=== PATIENT | female | born 1935 | race Two or more races ===

== ENCOUNTER → 2016-12-05 | Outpatient (CLI) | payer OTHER ==
--- NOTE | 2016-12-05 18:37 | CT ---
CT thoracic spine 1629 hours. History: Back pain. Fell one year ago with persistent lower thoracic pain. Assess for herniated disk, degenerative disk disease, spinal stenosis. (M 54.6) Technique: Spiral imaging was obtained through the thoracic spine. Images were reconstructed down to 1.5 mm slice thickness and reviewed in multiple planes. Dose reduction techniques were utilized. Findings: Multiple compression fractures are identified as follows: T3 mild compression superior endplate, T9 moderate to marked compression superior endplate, T10 marked compression superior endplate with patchy sclerosis, mild retropulsion posterior superior corner, T11 moderate to marked compression with patchy sclerosis, T12 moderate to marked compression superior endplate with patchy sclerosis, mild retropulsion posteri or superior corner, L1 mild compression superior endplate with Schmorl's nodes suspected, L2 marked compression superior endplate with mild retropulsion posterior superior corner, L3 marked compression superior endplate with mild retropulsion posterior superior corner and patchy s clerosis, L4 mild compression superior central endplate. There are no significant lytic or sclerotic osseous lesions. There is incidental bone island right an terior aspect of L4 segment. The lungs are hyperexpanded. There are pulmonary nodules, consolidation, or effusion. There is no pericardial effusion. Pacemaker unit and leads are in place. The paraspinal soft tissues appear to be normal. Impression: 1. Numerous compression fractures involving the visualized thoracic and lumbar spine segments most pr ominent from T9 through T12 as well as L2 and L3 segments as detailed above. The patchy sclerosis at these levels is probably related to bony reactive changes from chronic fracture. Osseous metastatic d isease is felt to be possible but less likely. 2. Minimal retropulsion of the posterior superior corners of T9, T10, T12, L2, and L3 segments withou t significant spinal stenosis. 3. Hyperexpanded lungs suggestive of underlying COPD.
== END ==
LOC: FIMAGING 15:47
PROVIDERS: ATTEND Physical Medicine & Rehabilitation
DX: M54.6 Pain in thoracic spine (principal); S22.000D Wedge compression fracture of unspecified thoracic vertebra, subsequent encounter for fracture with routine healing; S32.000D Wedge compression fracture of unspecified lumbar vertebra, subsequent encounter for fracture with routine healing; Z95.0 Presence of cardiac pacemaker; Z85.3 Personal history of malignant neoplasm of breast

== ENCOUNTER → 2017-01-03 | Outpatient (CLI) | payer OTHER | LOC: BMCIMAGING 08:50 | PROVIDERS: ATTEND Physician Assistant | DX: Z12.31 Encounter for screening mammogram for malignant neoplasm of breast (principal); M81.0 Age-related osteoporosis without current pathological fracture | CPT/HCPCS: G0202 ==

== ENCOUNTER 2017-11-21 17:34 | Inpatient (IN) | payer OTHER ==
--- NOTE | 2017-11-21 18:01 | EDPHY ---
H & P Stated Complaint: cough x 2 weeks flu neg/swelling bilat legs/chest pressure Time Seen by Provider: 11/21/17 18:00 HPI/ROS: CHIEF COMPLAINT: Worsening dyspnea, lower extremity edema HISTORY OF PRESENT ILLNESS: The patient presents to the ED with complaints of a dry nonproductive cough for the past 2 weeks. Over the past day she has developed bilateral lower extremity edema. The patient denies orthopnea or PND. The patient denies fever. She did have a negative flu test performed earlier in the week. She has a history of congestive heart failure and currently has a pacemaker. She is not anticoagulated. She does not on a diuretic. The patient denies any complaints of abdominal pain, dysuria, headache, numbness or weakness. REVIEW OF SYSTEMS: A comprehensive 10 point review of systems is otherwise negative aside from elements mentioned in the history of present illness. Source: Patient Exam Limitations: No limitations - Personal History Current Tetanus/Diphtheria Vaccine: Yes Tetanus Vaccine Date: 2014 - Medical/Surgical History Hx Asthma: No Hx Chronic Respiratory Disease: No Hx Diabetes: No Hx Cardiac Disease: Yes Hx Renal Disease: No Hx Cirrhosis: No Hx Alcoholism: No Hx HIV/AIDS: No Hx Splenectomy or Spleen Trauma: No Other PMH: chf; beast CA, L sided lymph nodes removed; Rheumatic fever, pacer ( [employer]), htn, hypothyroid - Social History Smoking Status: Former smoker - Physical Exam Exam: General Appearance: Alert, no distress Eyes: Pupils equal and round no pallor or injection ENT, Mouth: Mucous membranes moist Respiratory: There are no retractions, lungs are clear to auscultation Cardiovascular: Tachycardic Gastrointestinal: Abdomen is soft and nontender, no masses, bowel sounds normal Neurological: A&O, normal motor function, normal sensory exam, normal cranial nerves Skin: Warm and dry, no rashes Musculoskeletal: Neck is supple nontender Extremities: Bilateral 2+ pitting edema Psychiatric: Patient is oriented X 3, there is no agitation Constitutional: Initial Vital Signs Temperature (C) 36.3 C 11/21/17 17:44 Heart Rate 104 H 11/21/17 17:44 Respiratory Rate 20 11/21/17 17:44 Blood Pressure 128/84 H 11/21/17 17:44 O2 Sat (%) 95 11/21/17 17:44 O2 Delivery Mode Room Air Allergies/Adverse Reactions: No Known Allergies Allergy (Verified 11/21/17 17:43) Home Medications: Medication Instructions Recorded Carvedilol 06/24/15 Levothyroxine 06/24/15 Losartan Potassium 06/24/15 SIMVASTATIN 06/24/15 Spironolactone 06/24/15 Medical Decision Making - Diagnostics EKG Interpretation: EKG: Complete interpretation has been separately recorded in the [facility] archive. Summary impression: Atrial paced rhythm, rate 103 ED Course/Re-evaluation: The patient presents to the ED with several weeks of worsening cough, dyspnea and lower extremity edema. The patient is not currently on a diuretic. She is currently in a paced rhythm. The patient does have a elevated proBNP, cardiomegaly and bilateral pleural effusions with pulmonary venous congestion noted on her x-ray. The patient had a indeterminately elevated troponin. The patient is in no acute distress. She received 40 mg of IV Lasix. The patient will be admitted to the hospital in the setting of her acute congestive heart failure. Consultation was made with Dr. William Dougherty from the hospitalist service. The patient was re-evaluated at 8:00 p.m.. She is comfortable with the plan for admission. Differential Diagnosis: Differential diagnosis considered includes congestive heart failure, DVT, arrhythmia, myocardial infarction - Data Points Laboratory Results: Laboratory Results 11/21/17 18:25 11/21/17 18:25 11/21/17 11/21/17 18:25 18:25 WBC 5.70 10^3/uL 10^3/uL (3.80-9.50) RBC 3.79 10^6/uL L 10^6/uL (4.18-5.33) Hgb 11.8 g/dL L g/dL (12.6-16.3) Hct 36.0 % L % (38.0-47.0) MCV 95.0 fL fL (81.5-99.8) MCH 31.1 pg pg (27.9-34.1) MCHC 32.8 g/dL g/dL (32.4-36.7) RDW 16.5 % H % (11.5-15.2) Plt Count 188 10^3/uL 10^3/uL (150-400) MPV 10.7 fL fL (8.7-11.7) Neut % (Auto) 77.1 % H % (39.3-74.2) Lymph % (Auto) 14.4 % L % (15.0-45.0) Hamilton % (Auto) 7.0 % % (4.5-13.0) Eos % (Auto) 0.4 % L % (0.6-7.6) Baso % (Auto) 0.7 % % (0.3-1.7) Nucleat RBC Rel Count 0.0 % % (0.0-0.2) Absolute Neuts (auto) 4.40 10^3/uL 10^3/uL (1.70-6.50) Absolute Lymphs (auto) 0.82 10^3/uL L 10^3/uL (1.00-3.00) Absolute Monos (auto) 0.40 10^3/uL 10^3/uL (0.30-0.80) Absolute Eos (auto) 0.02 10^3/uL L 10^3/uL (0.03-0.40) Absolute Basos (auto) 0.04 10^3/uL 10^3/uL (0.02-0.10) Absolute Nucleated RBC 0.00 10^3/uL 10^3/uL (0-0.01) Immature Gran % 0.4 % % (0.0-1.1) Immature Gran # 0.02 10^3/uL 10^3/uL (0.00-0.10) Sodium 144 mEq/L mEq/L (135-145) Potassium 3.9 mEq/L mEq/L (3.5-5.2) Chloride 109 mEq/L mEq/L (97-110) Carbon Dioxide 21 mEq/l L mEq/l (22-31) Anion Gap 14 mEq/L mEq/L (8-16) BUN 34 mg/dL H mg/dL (7-23) Creatinine 0.9 mg/dL mg/dL (0.6-1.0) Estimated GFR 60 Glucose 96 mg/dL mg/dL (70-100) Calcium 8.9 mg/dL mg/dL (8.5-10.4) Troponin I 0.074 ng/mL H ng/mL (0.000-0.034) NT-Pro-B Natriuret Pep 10494 pg/mL H pg/mL (0-450) Medications Given: Discontinued Medications Furosemide (Lasix Injection) 40 mg IVP EDNOW ONE Stop: 11/21/17 19:09 Last Admin: 11/21/17 19:22 Dose: 40 mg Departure - Departure Disposition: [facility] Inpatient Acute Clinical Impression: Acute exacerbation of congestive heart failure, Elevated troponin I level Condition: Fair Referrals: Josey Campbell FNP [Primary Care Provider] - As per Instructions
--- NOTE | 2017-11-21 18:09 | CPEKG ---
Heart Rate: 103 RR Interval: 583 P-R Interval: 128 QRSD Interval: 98 QT Interval: 384 QTC Interval: 503 P Calvin: 111 QRS Calvin: 228 T Wave Calvin: 23 EKG Severity - ABNORMAL ECG - EKG Impression: ATRIAL-SENSED VENTRICULAR-PACED RHYTHM Electronically Signed By: Bhargav Hi 21-Nov-2017 18:16:14
[2017-11-21 18:43] LABS: PLATELET COUNT 188 10^3/uL (150-400)
[2017-11-21] MEDS ORDERED: FUROSEMIDE 40 MG/4 ML VIAL IVP ONE (19:08)
[2017-11-21] MEDS ORDERED: ACETAMINOPHEN 325 MG TAB PO PRN (21:49)
[2017-11-21] MEDS ORDERED: ONDANSETRON 4 MG/2 ML VIAL IVP PRN (21:49)
[2017-11-21] MEDS ORDERED: ONDANSETRON DISINTEGRATING 4 MG TAB PO PRN (21:49)
--- NOTE | 2017-11-21 22:25 | GHP ---
[f rep st] HISTORY AND PHYSICAL DATE OF ADMISSION: 11/21/2017 CHIEF COMPLAINT: Cough. HISTORY OF PRESENT ILLNESS: This is an 82-year-old female with a history of congestive heart failure who presents with cough. She does describes it as dry in her throat. She had a negative flu test a s an outpatient. She also noticed some swelling in her feet. She has had some mild shortness of wade ath. She describes some tightness in her chest, which is not exertional. It seems to come and go an d has been there over the last week. PAST MEDICAL/SURGICAL HISTORY: 1. Congestive heart failure. 2. Rheumatic heart disease followed by Dr. Mckeon. 3. Pacemaker. MEDICATIONS: Please see medication reconciliation. ALLERGIES: No known drug allergies. SOCIAL HISTORY: She lives with her son. She moved from [place] a few years ago. Her di ed last December of prostate cancer. FAMILY HISTORY: Reviewed and noncontributory. REVIEW OF SYSTEMS: A 10-point review of systems is conducted and is negative except per HPI. PHYSICAL EXAMINATION: VITAL SIGNS: Blood pressure 128/88, heart rate 97, respiration rate 16, satur ating 94% on room air. Temperature is 36. GENERAL: The patient is a very pleasant female, who is resting comfortably in no acute distress. HE ENT: Shows her to be normocephalic and atraumatic. CARDIOVASCULAR: Exam shows a regular rate and rh ythm. There is a faint systolic murmur. PULMONARY: Shows her to have diminished breath sounds at b ilateral bases. ABDOMEN: Exam is soft. She is mildly tender to palpation in the epigastrium. SKIN: Exam shows no rash. : Exam shows no Hylton NEUROLOGIC: Examination shows her to be alert and oriented x3. She is moving all extremities. PSYC HIATRIC: Examination shows normal mood and affect. LABORATORY DATA: Creatinine is 0.9. Troponin is 0.74. BNP is 18,500. Hemoglobin is low for 8. DATA: 1. I discussed with Dr. Hi and will admit to PCU. 2. I personally viewed and interpreted her chest x-ray. This shows pacemaker in place, cardiomegaly , bilateral pleural effusions, and pulmonary edema. 3. EKG shows an A-sensed V-paced rhythm with the left bundle morphology. IMPRESSION AND PLAN: 1. Suspected acute systolic congestive heart failure: Unclear precipitant. Unknown baseline ejecti on fraction. We will attempt to obtain an echocardiogram from Dr. Mckeon's office. We will order an e chocardiogram here for comparison. We will continue carvedilol and losartan. We will continue aggre ssive diuresis following her electrolytes, kidney function, daily weights, and I's and O's. 2. Chest pressure: May be due to congestive heart failure. Certainly it also could be angina. It is certainly possible her congestive heart failure is worsened by ischemia. Trend her troponins. Re commend cardiology consultation tomorrow. 3. Code status is full. 4. Venous thromboembolism risk is high. I will give her Lovenox. /[id number]/MODL
[2017-11-22 06:00] LABS: PLATELET COUNT 169 10^3/uL (150-400)
[2017-11-22] MEDS: FUROSEMIDE 40 MG/4 ML VIAL IVP SCH ×2 (08:58→14:51)
[2017-11-22] MEDS: LOSARTAN POTASSIUM 25 MG TAB PO SCH (08:58)
[2017-11-22] MEDS: ENOXAPARIN 40 MG/0.4 ML SYR SC SCH (08:59)
[2017-11-22] MEDS: CARVEDILOL 6.25 MG TAB PO SCH ×2 (08:59→18:06)
--- NOTE | 2017-11-22 10:28 | ASMTCASEMG ---
Living Arrangements What is your living Answers: With Child(nichole) arrangement? Who do you live with? Type Of Residence What kind of residence do Answers: House you live in? Discharge Plan Comments Coordination Status Comments Notes: Pt is a 82 y/o female admitted for a cough and swelling of her feet. Pt lives w/ her son. Pts last December from prostate cancer. No therapies have been ordered. Pt will most likely d/c independent when medically stable. CM available for changes. Plan: Independent Date Signed: 11/22/2017 10:27 AM Electronically Signed By:BRITTANY Root
--- NOTE | 2017-11-22 11:34 | PDMN ---
Medical Necessity Medical necessity: est los>2mn for suspected acute systolic CHF of unclear precipitant and unknown baseline EF, and chest pressure, r/o angina; admit for aggressive diuresis, follow labs, wt's and I&O, and cardiology consult; hx CHF, rheumatic heart disease, PPM; per order and H&P 11/21/17
--- NOTE | 2017-11-22 11:59 | HOSPPROG ---
Hospitalist Progress Note Assessment/Plan: 82 yo F here w acute on chronic systolic heart failure chf: unclear precipitant, although did travel to [place] w family some concern w med compliance diurese echo pending elevated troponin: flat, c/w chf anemia: mild has had colonoscopies in past proph: lmwh memory loss: outpt eval Subjective: tele: paced (interp by me). case d/w mario mckay, cardiology PA Objective: Vital Signs Temp Pulse Resp BP Pulse Ox 36.8 C 94 15 117/83 H 98 11/22/17 07:11 11/22/17 07:11 11/22/17 07:11 11/22/17 07:11 11/22/17 07:11 Laboratory Results 11/22/17 05:54 11/22/17 05:54 11/21/17 11/22/17 11/23/17 05:59 05:59 05:59 Intake Total 240 Output Total 300 Balance -60 - Physical Exam Constitutional: no apparent distress, appears nourished Eyes: PERRL, anicteric sclera Ears, Nose, Mouth, Throat: moist mucous membranes, hearing normal Cardiovascular: regular rate and rhythym, no murmur, rub, or gallop, edema Respiratory: no respiratory distress, inspiratory crackles Gastrointestinal: normoactive bowel sounds, soft, non-tender abdomen Genitourinary: no bladder fullness, No russ in urethra Skin: warm, normal color Musculoskeletal: full muscle strength, no muscle tenderness Neurologic: AAOx3 ICD10 Worksheet Patient Problems: Problems Problem Status Onset Acute exacerbation of congestive heart failure Acute Elevated troponin I level Acute Cellulitis Acute Pacemaker Acute Sebaceous cyst Acute
[2017-11-22] MEDS: BENZONATATE 100 MG CAP PO PRN (12:37)
--- NOTE | 2017-11-22 17:11 | ECHO ---
[email or web address] [address] Main: [phone] Fax: Transthoracic Echocardiogram Name: LOGAN TORRES MR#: [id number] Study Date: 11/22/2017 Study Time: 10:38 AM Date of : 1935 Age: 82 year(s) Height: 152.4 cm (60 in.) Weight: 47.63 kg (105 lb.) BSA: 1.42 m2 Gender: Female Examination: Echo Indication: CHF Image Quality: Adequate Contrast: Requested by: William Dougherty BP: 117 mmHg/83 mmHg Heart Rate: Rhythm: Indication: CHF Procedure Staff Disability Specialist: Christina Perez Reading Physician: Paul Rebollar Requesting Provider: Conclusions: Mildly dilated left ventricle. No LV hypertrophy. Moderately to severely reduced systolic function. The ejection fraction is estimated to be 25-30 %. Global hypokinesis. Normal size right ventricle. There is a ICD/Pacer wire noted in the right ventricle. The left atrium is moderately to severely dilated. In some views it appears the pacemaker wire in the RA crosses the IAS (possible PFO).. The right atrium is mildly dilated. There is a pacemaker lead noted in the coronary sinus. There is a pacemaker/ICD lead in the RA. There is mild thickening of the mitral valve leaflets. Moderate to severe mitral regurgitation. The aortic valve is tri-leaflet and functions normally. Trivial to mild aortic valve regurgitation. The tricuspid valve is normal in appearance and function. Moderate tricuspid regurgitation is present. Right ventricular systolic pressure measures 48mmHg. The pulmonic valve is normal in appearance and function. Mild pulmonic valve regurgitation is noted. Normal size aortic root measuring 2.2 cm. Normal size ascending aorta measuring 2.7 cm. Small pericardial effusion. There is a pleural effusion present. Measurements: Chambers Valvular Assessment AV/MV Valvular Assessment TV/PV Patient: LOGAN TORRES Study Date: 11/22/2017 Page 1 of 3 10:38 AM Normal Normal Normal Name Value Range Name Value Range Name Value Range Ao Nhi (MM): 2.2 cm (2.2 cm-3.7 AV Vmax: 1.16 m/s (1 m/s-1.7 TR Vmax: 3.08 mm/s ( - ) cm) m/s) TR PGmax: 38 mmHg ( - ) IVSd (2D): 0.9 cm (0.6 cm-1.1 AV maxP mmHg ( - ) syst. PAP: 48 mmHg ( - ) cm) LVOT Vmax: 0.51 m/s (0.7 m/s-1.1 PV Vmax: 0.77 m/s (0.6 m/s-0.9 LVDd (2D): 5.2 cm (3.9 cm-5.3 m/s) m/s) cm) MARCELO (Vmax): 1.1 cm2 ( - ) PV PGmax: 2 mmHg ( - ) LVDs (2D): 4.5 cm (2.1 cm-4 MV E Vmax: 0.80 m/s ( - ) cm) MV A Vmax: 0.88 m/s ( - ) LVPWd (2D): 0.8 cm ( - ) MV E/A: 0.91 ( - ) LVOTd 1.8 cm 1.8 cm mm LVEF (BP): 31 % (>=55 %) EF Range: 25-30 % Continued Measurements: Chambers Valvular Assessment AV/MV Valvular Assessment TV/PV Name Value Name Value Name Value LADs Lon.8 cm MV DecTime: 176 m/s CVP (est.): 10 mmHg LA Area: 22.3 cm2 MV E' Septal: 0.03 m/s LA Volume: 63 ml MV E/E' Septal: 30.70 LA Volume Index: 44.4 ml/m2 MV E/E' Lateral: 22.80 RA Area: 15.0 cm2 MR Vena Contracta: 0.5 cm MR ERO: 0.310 cm2 MR Reg. Volume: 44 ml Additional Vessels Name Value Ao Ascendin.7 cm Findings: Left Ventricle: Mildly dilated left ventricle. No LV hypertrophy. Moderately to severely reduced systolic function. The ejection fraction is estimated to be 25-30 %. Global hypokinesis. Right Ventricle: Normal size right ventricle. Normal RV function. There is a ICD/Pacer wire noted in the right ventricle. Left Atrium: The left atrium is moderately to severely dilated. In some views it appears the pacemaker wire in the RA crosses the IAS (possible PFO).. Right Atrium: The right atrium is mildly dilated. There is a pacemaker lead noted in the coronary sinus. There is a pacemaker/ICD lead in the RA. Mitral Valve: There is mild thickening of the mitral valve leaflets. Moderate to severe mitral regurgitation. No mitral stenosis is present. Aortic Valve: The aortic valve is tri-leaflet and functions normally. Aortic sclerosis is present. Trivial to mild aortic valve regurgitation. No aortic valve stenosis is present. Tricuspid Valve: The tricuspid valve is normal in appearance and function. Moderate tricuspid regurgitation is present. Right ventricular systolic pressure measures 48mmHg. The pulmonary artery pressure is moderately increased. Pulmonic Valve: The pulmonic valve is normal in appearance and function. Mild pulmonic valve regurgitation is noted. Aorta: Normal size aortic root measuring 2.2 cm. Normal size ascending aorta measuring 2.7 cm. Pericardium: Patient: LOGAN TORRES Study Date: 11/22/2017 Page 2 of 3 10:38 AM Small pericardial effusion. There is a pleural effusion present. (No Signature Object) Patient: LOGAN TORRES Study Date: 11/22/2017 Page 3 of 3 10:38 AM [id number]
--- NOTE | 2017-11-22 20:45 | GCON ---
[f rep st] CONSULTATION DATE OF CONSULTATION: 11/22/2017 PRIMARY CONTRACT ASSOCIATE MANAGER: Dr. Aaron Mckeon. CHIEF COMPLAINT: We are asked by Dr. Lindquist of Hospital Medicine to evaluate this patient for her sy stolic CHF. HISTORY OF PRESENT ILLNESS: This patient is an 82-year-old female with a history of systolic CHF, Bi V ICD, coronary artery disease that was not felt amenable to PCI in 2013, moderate MR, dyslipidemia, pulmonary hypertension, who is admitted to the hospital with worsening dyspnea, chest heaviness, and cough. She reports having been on vacation in [place] 2 weeks ago. Upon return from her trip, john russ had been having some significant dyspnea on exertion. When her gopgzife-wp-puq picked her up from the airport, she had to stop multiple times en route to the car, which is unusual for her. She himanshu nued to note dyspnea, chest heaviness, and dry cough. Additionally, she has started to note peripher al edema. Family brought her in, and she was found to have systolic CHF with BNP measured at 18,500, and an elevated troponin at 0.074. Currently, she reports that her chest heaviness is present, thou gh mildly improved. She denies any exertional component. She does note worsening dyspnea on exertio n. Her dry cough is also currently present. PAST MEDICAL HISTORY: 1. Dyslipidemia. 2. Coronary artery disease based on left heart catheterization in 2013. This showed LVEDP of 12, gl obal hypokinesis, EF of 30%, moderate to severe MR, no significant disease in the LAD, D1, D2. Rayne l OM1, OM2, and OM3. RCA has an anterior takeoff with about 30% to 40% stenosis. 3. Mitral regurgitation. Last echo from [facility] reviewed shows EF of 35% to 40%. Class 1 diastolic dysfunction. Elevated left atrial pressures. Mild TR. 4. Hypertension. 5. Hypothyroidism. 6. Left breast cancer status post lumpectomy, chemotherapy, and radiation in 1999. 7. Rheumatic fever. OUTPATIENT MEDICATIONS: Carvedilol, simvastatin, losartan. Spironolactone is also listed in her [facility] records. ALLERGIES: No known drug allergies. FAMILY HISTORY: Reviewed and noncontributory. SOCIAL HISTORY: The patient is recently as of December 2016. She is living with her son, Cleo leal. He is present in the room with his . She is a former smoker. No alcohol intake is liste d. REVIEW OF SYSTEMS: As per HPI. A complete 10-point review of systems is obtained and is negative, e xcept for what is dictated. PHYSICAL EXAMINATION: VITAL SIGNS: BP 93/57, heart rate 83, respirations 12, O2 saturation 88% on r oom air, corrected with 2 L/min to 95%. GENERAL: She is an elderly female, cachectic, in no apparen t distress. HEENT: Head is normocephalic, atraumatic. Eyes are without scleral icterus. Mucous me mbranes are moist. HEART: Irregular rate and rhythm with distant heart sounds. No rubs, gallops, o r murmurs. LUNGS: Diminished in the bases without rhonchi. ABDOMEN: Mildly distended with normoac tive bowel sounds. Nontender. : No Hylton present. SKIN: Warm and dry. There is 1+ pedal edema present. DATA REVIEWED: 12-lead ECG, personally interpreted, demonstrates A-sensed, V-paced rhythm. Chest x- ray from 11/21/2017, images reviewed, shows bilateral small pleural effusions with pulmonary edema. BMP: Sodium 145, potassium 3.9, chloride 110, CO2 25, BUN 31, creatinine 1, glucose 81. Troponin 0.074, then 0.08, then 0.078. BNP of 18,500. CBC: WBC 4.99, hemoglobin 11.1, hematocrit 34.8, platelet count 169. Nuclear stress test from 08/09/2016 reviewed: This showed a moderate-size, moderate-intensity, rever sible defect involving the full extent of the anterior wall, consistent with ischemia. There is also mild intensity reversible defect in the inferolateral and anterolateral tee, consistent with ische april. EF of 39%. Telemetry reviewed: A-sensed, V-paced rhythm. IMPRESSION AND PLAN: This patient is an 82-year-old female who is admitted with congestive heart erick lure exacerbation. 1. [id number] systolic congestive heart failure. She has known cardiomyopathy with an ejectio n fraction typically in the 35% to 40% range, though on testing from [facility], there is mention that her ejection fraction has been down to 25%. Current congestive heart failure exacerbat ion is likely precipitated by recent travel, change in diet, and viral illness characterized more as an upper respiratory infection. She has been started on intravenous diuresis. She will be kept on t elemetry for monitoring. A repeat echo has been ordered. 2. Very abnormal nuclear stress test. Report from [facility] shows large areas of ische april in 2016. Left heart catheterization was not pursued, given that she had a heart catheterization in 2013 that showed disease only present in the right coronary artery. We did discuss considering re peat heart catheterization. Family is open to this, but would like to adopt medical therapy as first -line. She had run out of her losartan, which has been resumed here. She does have some chest heavi ness that is somewhat atypical. We will manage medically at this point. 3. Mitral regurgitation. She has moderate to severe mitral regurgitation. Repeat echo has been daly dhaliwal. /[id number]/MODL
[2017-11-22] MEDS: ATORVASTATIN CALCIUM 10 MG TAB PO SCH (20:55)
[2017-11-23] MEDS: ENOXAPARIN 40 MG/0.4 ML SYR SC SCH (09:15)
[2017-11-23] MEDS: CARVEDILOL 6.25 MG TAB PO SCH ×2 (09:15→18:27)
[2017-11-23] MEDS: LOSARTAN POTASSIUM 25 MG TAB PO SCH (09:15)
[2017-11-23] MEDS: FUROSEMIDE 40 MG/4 ML VIAL IVP SCH ×2 (09:15→15:57)
[2017-11-23] MEDS ORDERED: POLYETHYLENE GLYCOL 3350 17 GM PKT PO PRN (09:16)
[2017-11-23] MEDS ORDERED: MAGNESIUM HYDROXIDE 30 ML UDCUP PO PRN (09:16)
[2017-11-23] MEDS ORDERED: BISACODYL 10 MG SUPP PR PRN (09:16)
[2017-11-23] MEDS ORDERED: LACTULOSE 20 GM/30 ML UDCUP PO PRN (09:16)
--- NOTE | 2017-11-23 11:46 | PDCARPN ---
Cardiology Progress Note Assessment/Plan: Assessment/plan: 82-year-old female with a history of cardiomyopathy, non flow- limiting coronary disease based on angiogram in 2013, biventricular ICD, and rheumatic heart disease with moderate to severe mitral, moderate tricuspid regurgitation and mild pulmonary hypertension. Her outpatient personal development mentor is Dr. Shankar Mckeon. She was admitted on November 21 with shortness of breath, cough, chest pain, and lower extremity edema. This occurred after 2 weeks of travel to [place] and being off of her losartan. She has improved clinically with IV diuresis. 1. Acute on chronic systolic heart failure: Ejection fraction this admission is slightly lower than her outpatient echo, current EF 25-30%. Her BNP was initially 33052, now 12,200. Continue IV Lasix. It is possible that dietary indiscretion, being off her losartan, and viral illness exacerbated her systolic dysfunction. However, I am also concerned about the contribution from her valvular disease. Furthermore, we cannot completely rule out progressive coronary disease as a contributor to her heart failure. Continue losartan and carvedilol. 2. Coronary disease with no flow-limiting stenoses based on angiogram in 2013. Her troponin here is 0.08. She currently does not have angina. She did have an abnormal myocardial perfusion study at [facility] in 2016. I discussed with the patient and her son the possibility of performing diagnostic coronary angiography as well as right heart catheterization, as early as Saturday. I think this is reasonable in the setting of her valvular disease and heart failure exacerbation. They will consider this. Start aspirin. Continue statin and beta-radha. 3. Biventricular pacemaker/ICD: She is ventricularly pacing. No obvious issues at this time. 4. Rheumatic heart disease with moderate to severe mitral regurgitation moderate tricuspid regurgitation. May need CT surgery evaluation at some point. Re-evaluate valvular disease when she ismore euvolemic. Consider right and left heart catheterization as detailed per #2. 11/23/17 11:52 Subjective: Nel reports improved shortness of breath today. No chest pain. Lower extremity edema is present but improved compared with admission. Reviewed/Discussed With: family Objective: Vital Signs (8 Hrs) Temp Pulse Resp BP Pulse Ox 11/23/17 07:31 36.7 C 90 12 102/67 94 11/23/17 05:06 36.7 C 85 10 L 101/66 93 Intake/Output (24 Hrs) 11/22/17 11/23/17 11/24/17 05:59 05:59 05:59 Intake Total 460 Output Total 1100 Balance -640 Intake: Oral (ml) 460 Output: Urine (ml) 1100 Toilet 1100 Other: Weight 41.844 kg Number of Voids 2 Toilet 2 No acute distress. Sitting up in chair JVP is 10 cm of water the patient at 90 degrees Regular rate and rhythm with soft early systolic murmur at the apex. No rub or gallop Lungs clear auscultation without wheeze rhonchi or rales Mild bilateral ankle edema bilaterally Result Diagrams: 11/22/17 05:54 11/23/17 03:46 Cardiac Labs: Cardiac Lab Results (72 Hrs) 11/22/17 11/22/17 10:28 05:54 Troponin I 0.078 H 0.080 H EKG: Reviewed from admission a sense V paced. Telemetry: Sinus rhythm with ventricular pacing ICD10 Worksheet Patient Problems: Problems Problem Status Onset Sebaceous cyst Acute Cellulitis Acute Pacemaker Acute Acute exacerbation of congestive heart failure Acute Elevated troponin I level Acute
[2017-11-23] MEDS: ASPIRIN 81 MG CHEWABLE TAB PO SCH (12:52)
--- NOTE | 2017-11-23 16:36 | HOSPPROG ---
Hospitalist Progress Note Assessment/Plan: # Acute on chronic systolic heart failure- ECHO (reviewed) Current EF 25-30%- BNP was initially 62055 -> 90376 oxygen saturations 92% on RA - CXR (personally reviewed and interpreted) bilateral effusions and edema - Continue IV Lasix- watch BMP closely as developing contraction alkalosis - Continue losartan and carvedilol # CAD - troponin 0.08 - no CP - abnormal myocardial perfusion study as outpatient in 2015. - cont aspirin - Continue statin and beta-radha - considering cardiac catheterization on Saturday # Biventricular pacemaker/ICD: She is ventricularly pacing. No obvious issues at this time. # Rheumatic heart disease - moderate to severe mitral regurgitation -Considering right and left heart catheterization on Saturday # proph - lovenox # diet- cardiac # dispo - > 2 MN as patient remains acutely ill requiring IV diuretics I have discussed the case with Dr. Benson - will continue IV diuresis - anticipate ischemic work up next week Subjective: feeling better Objective: Vital Signs Temp Pulse Resp BP Pulse Ox 36.6 C 87 12 79/43 L 92 11/23/17 11:33 11/23/17 11:33 11/23/17 11:33 11/23/17 11:33 11/23/17 11:33 Laboratory Results 11/22/17 05:54 11/23/17 03:46 11/22/17 11/23/17 11/24/17 05:59 05:59 05:59 Intake Total 460 Output Total 1100 Balance -640 - Physical Exam Constitutional: no apparent distress Eyes: anicteric sclera Ears, Nose, Mouth, Throat: moist mucous membranes Cardiovascular: regular rate and rhythym, systolic murmur Respiratory: no respiratory distress, No inspiratory crackles Gastrointestinal: normoactive bowel sounds Genitourinary: no bladder fullness Skin: warm Musculoskeletal: No asymmetric calves Neurologic: AAOx3 Psychiatric: interacting appropriately Lymph, Heme, Immunologic: no cervical LAD ICD10 Worksheet Patient Problems: Problems Problem Status Onset Acute exacerbation of congestive heart failure Acute Elevated troponin I level Acute Cellulitis Acute Pacemaker Acute Sebaceous cyst Acute
[2017-11-23] MEDS: BENZONATATE 100 MG CAP PO PRN (18:27)
[2017-11-23] MEDS: ATORVASTATIN CALCIUM 10 MG TAB PO SCH (20:37)
[2017-11-23] MEDS: SENNOSIDES/DOCUSATE SODIUM TAB PO SCH (22:15)
[2017-11-24] MEDS: ENOXAPARIN 40 MG/0.4 ML SYR SC SCH (09:12)
[2017-11-24] MEDS: SENNOSIDES/DOCUSATE SODIUM TAB PO SCH ×2 (09:13→20:39)
[2017-11-24] MEDS: CARVEDILOL 6.25 MG TAB PO SCH ×2 (09:13→18:07)
[2017-11-24] MEDS: LOSARTAN POTASSIUM 25 MG TAB PO SCH (09:13)
[2017-11-24] MEDS: ASPIRIN 81 MG CHEWABLE TAB PO SCH (09:13)
[2017-11-24] MEDS: FUROSEMIDE 40 MG/4 ML VIAL IVP SCH ×2 (09:13→15:37)
--- NOTE | 2017-11-24 10:55 | ASMTCMCOM ---
CM Note CM Note Notes: Discussed with RN, patient will likely need cardiac catheterization tomorrow 11/25. Discharge plan until this point has been home with son Stuart. If her needs change s/p heart cath, Case Management will assist with discharge needs. Date Signed: 11/24/2017 10:54 AM Electronically Signed By:Sury Razo RN
--- NOTE | 2017-11-24 13:48 | PDCARPN ---
Cardiology Progress Note Assessment/Plan: Assessment/plan: 82-year-old female with a history of cardiomyopathy, non flow- limiting coronary disease based on angiogram in 2013, biventricular ICD, and rheumatic heart disease with moderate to severe mitral, moderate tricuspid regurgitation and mild pulmonary hypertension. Her outpatient edi developer is Dr. Shankar Mckeon. She was admitted on November 21 with shortness of breath, cough, chest pain, and lower extremity edema. This occurred after 2 weeks of travel to [place] and being off of her losartan. She has improved clinically with IV diuresis. 1. Acute on chronic systolic heart failure: Ejection fraction this admission is slightly lower than her outpatient echo, current EF 25-30%. Her BNP was initially 36390, now 12,200. Continue IV Lasix. It is possible that dietary indiscretion, being off her losartan, and viral illness exacerbated her systolic dysfunction. However, I am also concerned about the contribution from her valvular disease. Furthermore, we cannot completely rule out progressive coronary disease as a contributor to her heart failure. Continue losartan and carvedilol. 2. Coronary disease with no flow-limiting stenoses based on angiogram in 2013. Her troponin here is 0.08. She currently does not have angina. She did have an abnormal myocardial perfusion study at [facility] in 2016. I discussed with the patient and her son the possibility of performing diagnostic coronary angiography as well as right heart catheterization, as early as Saturday. I think this is reasonable in the setting of her valvular disease and heart failure exacerbation. They will consider this. Start aspirin. Continue statin and beta-radha. 3. Biventricular pacemaker/ICD: She is ventricularly pacing. No obvious issues at this time. 4. Rheumatic heart disease with moderate to severe mitral regurgitation moderate tricuspid regurgitation. May need CT surgery evaluation at some point. Re-evaluate valvular disease when she is more euvolemic. Consider right and left heart catheterization as detailed per #2. ALSO CONSIDER PETER IF NO NEW FLOW LIMITING DISEASE AND EVIDENCE OF MR ON LV GRAM AND/OR LARGE V WAVE WITH ELEVATED FILLING PRESSURES ON RIGHT HEART CATH SUGGESTIVE OF MITRAL INSUFFICIENCY. IT MAY BE REASONABLE TO DO A SIMULTANEOUS LVEDP AND LEFT HEART MEASUREMENT TO RULE OUT INFLOW GRADIENT WHICH WOULD BE SUGGESTIVE OF EITHER SEVERE MR OR SOME DEGREE OF MITRAL STENOSIS WELL GIVEN HISTORY OF RHEUMATIC HEART DISEASE. 11/24/17 13:44 Reviewed/Discussed With: hospitalist, multidisciplinary team, other (NURSE) Objective: Vital Signs (8 Hrs) Temp Pulse Resp BP Pulse Ox 11/24/17 11:43 36.6 C 84 16 76/44 L 93 11/24/17 07:20 36.7 C 89 12 95/61 L 99 Intake/Output (24 Hrs) 11/23/17 11/24/17 11/25/17 05:59 05:59 05:59 Intake Total 460 820 Output Total 1100 Balance -640 820 Intake: Oral (ml) 460 820 Output: Urine (ml) 1100 Toilet 1100 Other: Weight 41.844 kg 42.2 kg Number of Voids 2 Toilet 2 1 Number of Stools Toilet 1 Result Diagrams: 11/22/17 05:54 11/24/17 09:30 Cardiac Labs: Cardiac Lab Results (72 Hrs) 11/22/17 11/22/17 10:28 05:54 Troponin I 0.078 H 0.080 H - Physical Exam Constitutional: no apparent distress Eyes: PERRL, anicteric sclera Ears, Nose, Mouth, Throat: moist mucous membranes Cardiovascular: regular rate and rhythm, systolic murmur Respiratory: clear to auscultate bilat Gastrointestinal: normoactive bowel sounds, no tenderness, no masses ICD10 Worksheet Patient Problems: Problems Problem Status Onset Acute exacerbation of congestive heart failure Acute Elevated troponin I level Acute Cellulitis Acute Pacemaker Acute Sebaceous cyst Acute
[2017-11-24] MEDS ORDERED: FAMOTIDINE 20 MG TAB PO ONE (13:51)
[2017-11-24] MEDS ORDERED: TEMAZEPAM 15 MG CAP PO PRN (13:51)
[2017-11-24] MEDS ORDERED: diphenhydrAMINE 25 MG CAP PO ONE (13:51)
[2017-11-24] MEDS ORDERED: DIAZEPAM 5 MG TAB PO ONE (13:51)
[2017-11-24] MEDS ORDERED: NITROGLYCERIN 0.4 MG BTL SL PRN (13:51)
[2017-11-24] MEDS ORDERED: NS 1,000 ML IV ONE (13:52)
[2017-11-24] MEDS: BENZONATATE 100 MG CAP PO PRN (15:38)
--- NOTE | 2017-11-24 16:33 | HOSPPROG ---
Hospitalist Progress Note Assessment/Plan: # Acute on chronic systolic heart failure- ECHO (reviewed) Current EF 25-30%- BNP was initially 19145 -> 80390- edema markedly improved today oxygen saturations 92% on RA - CXR (personally reviewed and interpreted) bilateral effusions and edema - Continue IV Lasix- diuresing well creatinine stable 1.0 - Continue losartan and carvedilol # CAD - troponin 0.08 - no CP - abnormal myocardial perfusion study as outpatient in 2016. - cont aspirin - Continue statin and beta-radha - considering cardiac catheterization tomorrow # Biventricular pacemaker/ICD: She is ventricularly pacing. No obvious issues at this time. # Rheumatic heart disease - moderate to severe mitral regurgitation -Considering right and left heart catheterization tomorrow # proph - lovenox # diet- cardiac # dispo - > 2 MN as patient remains acutely ill requiring IV diuretics I have discussed the case with RN- encouraging nutritional intake and activity- patient grieving Subjective: No shortness of breath or chest pain Objective: Vital Signs Temp Pulse Resp BP Pulse Ox 36.4 C 90 12 96/59 L 97 11/24/17 16:00 11/24/17 16:00 11/24/17 16:00 11/24/17 16:00 11/24/17 16:00 Laboratory Results 11/22/17 05:54 11/24/17 09:30 11/23/17 11/24/17 11/25/17 05:59 05:59 05:59 Intake Total 460 820 600 Output Total 1100 Balance -640 820 600 - Physical Exam Constitutional: cachectic Eyes: anicteric sclera Ears, Nose, Mouth, Throat: moist mucous membranes Cardiovascular: regular rate and rhythym, systolic murmur Respiratory: no respiratory distress, inspiratory crackles Gastrointestinal: normoactive bowel sounds Genitourinary: no bladder fullness Skin: warm Musculoskeletal: No asymmetric calves Neurologic: AAOx3 Psychiatric: interacting appropriately Lymph, Heme, Immunologic: no cervical LAD ICD10 Worksheet Patient Problems: Problems Problem Status Onset Acute exacerbation of congestive heart failure Acute Elevated troponin I level Acute Cellulitis Acute Pacemaker Acute Sebaceous cyst Acute
[2017-11-24] MEDS: ATORVASTATIN CALCIUM 10 MG TAB PO SCH (20:39)
[2017-11-25 04:59] LABS: INR 1.02 (0.83-1.16); PROTIME(PATIENT) 13.6 SEC (12.0-15.0)
[2017-11-25 05:00] LABS: PLATELET COUNT 175 10^3/uL (150-400)
[2017-11-25] MEDS ORDERED: DIAZEPAM 5 MG TAB PO ONE (06:00)
[2017-11-25] MEDS ORDERED: NS 1,000 ML IV ONE (06:00)
[2017-11-25] MEDS ORDERED: FAMOTIDINE 20 MG TAB PO ONE (06:00)
[2017-11-25] MEDS ORDERED: diphenhydrAMINE 25 MG CAP PO ONE ×2 (06:00→09:27)
--- NOTE | 2017-11-25 08:49 | PDHPUP ---
History & Physical Update H&P update statement: This history and physical update is based on an assessment of the patient which was completed after admission or registration (within 24 hours), but prior to the surgery/procedure. H&P update: H&P reviewed & patient examined, no change in patient's condition since H&P completed
--- NOTE | 2017-11-25 08:49 | PDPROPOC ---
Sedation Plan of Care ASA Classification: ASA 4 Planned drugs: fentanyl, midazolam Mallampati Score: Class 2 Mallampati Reference Image: Patient passed 3-3-2 rule?: Yes
--- NOTE | 2017-11-25 09:20 | CPEKG ---
Heart Rate: 85 RR Interval: 706 P-R Interval: 140 QRSD Interval: 114 QT Interval: 432 QTC Interval: 514 P [place]: -17 QRS [place]: 266 T Wave [place]: -4 EKG Severity - ABNORMAL ECG - EKG Impression: ATRIAL-SENSED VENTRICULAR-PACED RHYTHM Electronically Signed By: Delmar Glynn 27-Nov-2017 09:19:26
[2017-11-25] MEDS ORDERED: FAMOTIDINE 20 MG TAB ONE (09:27)
[2017-11-25] MEDS ORDERED: ASPIRIN EC 325 MG TAB PO ONE ×2 (09:27→10:00)
[2017-11-25] MEDS ORDERED: ASPIRIN 325 MG TAB PO ONE (09:45)
[2017-11-25] MEDS: ASPIRIN 81 MG CHEWABLE TAB PO SCH (11:17)
[2017-11-25] MEDS ORDERED: MIDAZOLAM 2 MG/2 ML VIAL ONE (11:34)
[2017-11-25] MEDS ORDERED: LIDOCAINE 1% 300 MG/30 ML SDV ONE (11:34)
[2017-11-25] MEDS ORDERED: IOPAMIDOL (ISOVUE-370) 150 ML BTL IV ONE (11:34)
[2017-11-25] MEDS ORDERED: fentaNYL 100 MCG/2 ML INJ ONE (11:34)
[2017-11-25] MEDS ORDERED: ATROPINE SULFATE 1 MG/10 ML SYR IVP PRN (13:26)
--- NOTE | 2017-11-25 13:32 | CPIP ---
[f rep st] INVASIVE CARDIAC PROCEDURE DATE OF PROCEDURE: 11/25/2017 PROCEDURE PERFORMED: 1. Right and left heart catheterization. 2. Selective coronary angiography. 3. Left ventriculogram. 4. Manual hold arteriotomy and venotomy repair. This was a right groin approach. COMPLICATIONS: None. 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 The patient is with prior history of BiV AICD as well. After informed consent was obtained, n.p.o. status was confirmed, the region of the right groin was c leaned, prepped, and draped in sterile fashion. Approximately 5 cc of 1% lidocaine was utilized for local anesthesia. A micropuncture set was used to gain access to the right common femoral artery wit h single anterior puncture of the vessel. A 6-Sinhala sheath was placed in the right common femoral a nd noted to be a stick above the bifurcation in an VALDES projection angiography. We then placed a 5-Fr ench sheath to the right common femoral vein with the use of a regular Cook needle. The patient then underwent right heart catheterization with simultaneous pressure tracing measuring the pulmonary cap illary wedge pressure which was measured at 17/15 with relatively small V-waves and LV pressure with simultaneously recorded LVEDP was 11. There was near superimposition of the end-diastolic pressures and therefore the patient does not have significant mitral stenosis nor is there evidence of a large enough regurgitant volume for mitral stenosis type physiology to be present. The PA pressure was ariana sured at 46/20 with a mean pressure of 30. RV pressure 44/7 with an end-diastolic pressure of 9. Ri ght atrial pressure 10/9/mean of 7. The cardiac output the PA sat was 62.5, AO sat 88.9, yielding a cardiac index was 2.1 L/L per minute/meter squared and the cardiac output was 3.1. The patient underwent left ventriculogram in the VALDES projection, demonstrating severely depressed and globally depressed left ventricular systolic function. Estimated ejection fraction is 20%. There w as 2+ mitral regurgitation with evidence of left atrial enlargement. Visualized portion of the thora cic aorta reveals 3 sinuses of Valsalva most consistent with a trileaflet aortic valve. There was no evidence of candelaria aneurysm or dissection. The left main coronary lumen is approximately 6 mm in size. It bifurcates into an LAD and circumflex lesion. The LAD gives rise to 3 important diagonal branches, all of which are free of flow-limiting obstruction. There is JLUIS-3 flow in the LAD diagonal system. The circumflex obtuse marginal syste m is widely patent with a 3 mm vessel proximally, giving rise to 2 smaller obtuse marginal branches a nd then a larger posterolateral ventricular branch. Significant vessel tortuosity is present consist ent with the patient's age and female gender. The right coronary artery is dominant giving rise to the posterior descending as well as a small post erolateral ventricular branch. It is 3 mm in size proximally. With initial injection, there appeare d to be a possible lesion in the ostial portion of the RCA. However, with coaxial placement of the c atheter and in the GERMAN caudal projection it was clear that there was no evidence of obstructive disea se in the proximal or ostial RCA with good blow back into the aorta. SUMMARY OF FINDINGS: No evidence of significant or [place] vessel coronary disease that would explain the patient's angina. The patient has a severe and dilated cardiomyopathy with ejection fraction of 20% without evidence of significantly elevated filling pressures. It is unlikely that the patient h as a lesion of the mitral valve that would be amenable to an operation as this appears to be in part functional mitral regurgitation. The patient would likely be best managed medically because there do es not appear to be 3 or 4+ mitral regurgitation, large V-waves, elevated pulmonary capillary wedge p ressure, or left ventricular end-diastolic filling pressures. I do not think that a transesophageal echo, the risk of that procedure would be warranted in this particular situation and therefore that p rocedure has been canceled. 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 Copy requested to: Primary Care Physician /[id number]/MODL
[2017-11-25] MEDS: CARVEDILOL 6.25 MG TAB PO SCH ×2 (14:26→17:45)
[2017-11-25] MEDS: FUROSEMIDE 40 MG/4 ML VIAL IVP SCH (14:26)
[2017-11-25] MEDS: ENOXAPARIN 40 MG/0.4 ML SYR SC SCH (14:27)
[2017-11-25] MEDS: LOSARTAN POTASSIUM 25 MG TAB PO SCH (15:18)
[2017-11-25] MEDS: SENNOSIDES/DOCUSATE SODIUM TAB PO SCH ×2 (15:45→21:17)
--- NOTE | 2017-11-25 16:07 | HOSPPROG ---
Hospitalist Progress Note Assessment/Plan: # Acute on chronic systolic heart failure- ECHO (reviewed) Current EF 25-30%- BNP was initially 54769 -> 54529- edema markedly improved today oxygen saturations 92% on RA - TELE (personally reviewed and interpreted) paced - hold IV Lasix today as creatinine 1.1 and patient received large contrast bolus in cath today - Continue losartan and carvedilol # CAD - troponin 0.08 - no CP - abnormal myocardial perfusion study as outpatient in 2016. - cont aspirin - Continue statin and beta-radha - cardiac catheterization today # Biventricular pacemaker/ICD: She is ventricularly pacing. No obvious issues at this time. # Rheumatic heart disease - moderate to severe mitral regurgitation -Considering right and left heart catheterization tomorrow # proph - lovenox # diet- cardiac # dispo - > 2 MN as patient remains acutely ill requiring IV diuretics I have discussed the case with RN- holding diuretic today after returning from cath Subjective: no SOB Objective: Vital Signs Temp Pulse Resp BP Pulse Ox 36.3 C 77 16 108/70 94 11/25/17 14:50 11/25/17 14:50 11/25/17 14:50 11/25/17 15:18 11/25/17 14:50 Laboratory Results 11/25/17 04:30 11/25/17 04:30 11/24/17 11/25/17 11/26/17 05:59 05:59 05:59 Intake Total 820 800 100 Balance 820 800 100 PT 13.6 SEC (12.0-15.0) 11/25/17 04:30 INR 1.02 (0.83-1.16) 11/25/17 04:30 - Physical Exam Constitutional: cachectic Eyes: anicteric sclera Ears, Nose, Mouth, Throat: moist mucous membranes Cardiovascular: regular rate and rhythym, systolic murmur Respiratory: no respiratory distress Gastrointestinal: normoactive bowel sounds Genitourinary: no bladder fullness Skin: warm Musculoskeletal: No asymmetric calves Neurologic: AAOx3 Psychiatric: interacting appropriately Lymph, Heme, Immunologic: no cervical LAD ICD10 Worksheet Patient Problems: Problems Problem Status Onset Acute exacerbation of congestive heart failure Acute Elevated troponin I level Acute chronic disease mgmt/transitional Care Acute Cellulitis Acute Pacemaker Acute Sebaceous cyst Acute
[2017-11-25] MEDS: ATORVASTATIN CALCIUM 10 MG TAB PO SCH (21:17)
[2017-11-26 07:26] VITALS: RESP 16
[2017-11-26] MEDS ORDERED: ENOXAPARIN 30 MG/0.3 ML SYR SC SCH (09:00)
[2017-11-26] MEDS: SENNOSIDES/DOCUSATE SODIUM TAB PO SCH (09:53)
[2017-11-26] MEDS: ASPIRIN 81 MG CHEWABLE TAB PO SCH (09:54)
[2017-11-26] MEDS ORDERED: PNEUMOC 13-VAL CONJ-DIP CRM/PF 0.5 ML SYR IM ONE (10:17)
[2017-11-26] MEDS: CARVEDILOL 6.25 MG TAB PO SCH (11:12)
[2017-11-26 11:31] VITALS: BP 93/61; PULSE 88; TEMP 98.1
[2017-11-26] MEDS: LOSARTAN POTASSIUM 25 MG TAB PO SCH (12:56)
--- NOTE | 2017-11-26 13:33 | PDHOMEO2F ---
Home Oxygen Face to Face Home Orders: I certify that a physician or a nurse practitioner or physician's psych assistant has had a [id number] encounter with this patient on the date of this order due to the diagnosis listed, which relates to the primary reason the patient requires home oxygen. Alternative treatments have been tried, or considered, and deemed ineffective. It is anticipated that supplemental oxygen will result in improvement with treatment. Home oxygen qualifying diagnosis: acute systolic heart failure SpO2 on room air (%): 86 Frequency of home oxygen needed: with activity Home oxygen liters per minute: 1 Home oxygen delivery device: nasal cannula Concentrator: Yes E-tanks for mobility and back up: Yes If ordering portable O2, is the patient mobile in the home?: Yes I certify that, based on these findings, the home oxygen is medically necessary for this patient for the following length of time. Length of time home oxygen needed: 99 years
[2017-11-26 13:40] VITALS: O2SAT 86
--- NOTE | 2017-11-26 15:41 | ASDISCHSUM ---
Discharge Information Plan Status:Home with No Needs Medically Cleared to Leave:11/25/2017 Discharge Date:11/26/2017 03:28 PM CM D/C Disposition: ADT D/C Disposition:Home, Routine, Self-Care Projected Discharge Date:11/26/2017 12:00 AM Transportation at D/C: Discharge Delay Reason: Follow-Up Date:11/26/2017 12:00 AM Discharge Slot: Final Diagnosis: Placement Information Patient Contact Information Contact Name:MANOHAR Relationship:Quentin Address: Work Phone: City: [facility] Phone: State/[place] Code: Email: Financial Information Financial Class: Primary Plan Desc:MEDICARE INPATIENT Primary Plan Number:[id number] Secondary Plan Desc:ELIEZER Secondary Plan Number:[id number] Assessment Information [facility] Initial CM Assessment Living Arrangements What is your living Answers: With Child(nichole) arrangement? Who do you live with? Type Of Residence What kind of residence do Answers: House you live in? Discharge Plan Comments Coordination Status Comments Notes: Pt is a 82 y/o female admitted for a cough and swelling of her feet. Pt lives w/ her son. Pts last December from prostate cancer. No therapies have been ordered. Pt will most likely d/c independent when medically stable. CM available for changes. Plan: Independent Date Signed: 11/22/2017 10:27 AM Electronically Signed By:BRITTANY Root [facility] CM Progress Note CM Note CM Note Notes: Discussed with RN, patient will likely need cardiac catheterization tomorrow 11/25. Discharge plan until this point has been home with quentin Davidson. If her needs change s/p heart cath, Case Management will assist with discharge needs. Date Signed: 11/24/2017 10:54 AM Electronically Signed By:Sury Razo RN Intervention Information Intervention Type:*YOUNGER-Signed Date of Service:11/22/2017 09:53 AM Patient Type:Observation Staff Member:Elin Ulrich Hours: Discipline: Severity: Comment: Intervention Type:*IM-Signed Date of Service:11/26/2017 02:30 PM Patient Type:Inpatient Staff Member:Elin Ulrich Hours: Discipline: Severity: Comment:
--- NOTE | 2017-11-26 23:58 | GDS ---
[f rep st] DISCHARGE SUMMARY DISCHARGE DIAGNOSES: 1. Acute systolic heart failure. 2. Acute hypoxic respiratory failure secondary to heart failure. 3. Hypertension. 4. Severe protein-calorie malnutrition. HISTORY OF PRESENT ILLNESS: This is an 82-year-old female, who presents to the hospital with weaknes s and shortness of breath. For details of patient's initial presentation, please see the history and physical dated 11/21/2017. CONSULTATIVE SERVICES: Cardiology. PROCEDURES: On 11/25/2017, patient underwent a left and right cardiac catheterization. HOSPITAL COURSE BY ISSUE: 1. Acute systolic heart failure. Patient received aggressive IV diuresis during her hospital stay w ith marked improvement in her lower extremity edema, hypoxia, dyspnea, and overall fatigue. Patient is being discharged on appropriate regimen for heart failure, including carvedilol, an ARB, low-dose Lasix. She is to follow with Fredy Montoya next week for her first post cath followup, as well as la boratory check for diuretic titration. 2. Severe protein-calorie malnutrition. Patient is actively grieving the of her . She has had subsequently very poor appetite. We did encourage nourishment, which will be continued in t he outpatient setting by her family. 3. Acute grief. We have encouraged her grief resources in the outpatient setting. MEDICATIONS AT THE TIME OF DISPOSITION: Please reference the med rec printed on 11/26/2017. FOLLOWUP APPOINTMENTS: With Fredy Montoya in 1 week's time to check labs and address her discharge d osing of Lasix at 20 mg b.i.d. I spent greater than 30 minutes in the planning and coordination of this discharge. /[id number]/MODL
== END 2017-11-26 15:28 | disposition home or self-care (01) | DRG 286 ==
LOC: OBSVTOIN 21:49 → F2W 11-22 06:36 → UNDODISIN 11-26 13:09
PROVIDERS: ADMIT Student in an Organized Health Care Education/Training Program; ATTEND Student in an Organized Health Care Education/Training Program
PROC: B2151ZZ Fluoroscopy of Left Heart using Low Osmolar Contrast (ICD-10-PCS; principal; 2017-11-25)
PROC: B2111ZZ Fluoroscopy of Multiple Coronary Arteries using Low Osmolar Contrast (ICD-10-PCS; principal; 2017-11-25)
PROC: 4A023N8 Measurement of Cardiac Sampling and Pressure, Bilateral, Percutaneous Approach (ICD-10-PCS; principal; 2017-11-25)
DX: I11.0 Hypertensive heart disease with heart failure (principal); I50.21 Acute systolic (congestive) heart failure; J96.01 Acute respiratory failure with hypoxia; E43 Unspecified severe protein-calorie malnutrition; F43.21 Adjustment disorder with depressed mood; E03.9 Hypothyroidism, unspecified; E78.5 Hyperlipidemia, unspecified; I25.10 Atherosclerotic heart disease of native coronary artery without angina pectoris; I34.0 Nonrheumatic mitral (valve) insufficiency; Z85.3 Personal history of malignant neoplasm of breast; Z87.891 Personal history of nicotine dependence; Z95.810 Presence of automatic (implantable) cardiac defibrillator
CPT/HCPCS: 96374; J1644; J1650; J1940; J2250; J3010; Q9967

== ENCOUNTER 2018-05-21 13:05 | Emergency (ER) | payer OTHER ==
--- NOTE | 2018-05-21 13:31 | CPEKG ---
Heart Rate: 63 RR Interval: 952 P-R Interval: 156 QRSD Interval: 112 QT Interval: 476 QTC Interval: 488 P Humble: -8 QRS Humble: 264 T Wave Humble: 43 EKG Severity - ABNORMAL ECG - EKG Impression: ATRIAL-SENSED VENTRICULAR-PACED RHYTHM Electronically Signed By: Anabel Pelayo 21-May-2018 14:00:01
[2018-05-21] MEDS ORDERED: DEXAMETHASONE 10 MG/ML VIAL IVP ONE (13:37)
[2018-05-21] MEDS ORDERED: KETOROLAC 30 MG/1 ML SDV IVP ONE (13:37)
[2018-05-21] MEDS ORDERED: NS 250 ML IV ONE ×2 (13:37→14:25)
[2018-05-21] MEDS ORDERED: ONDANSETRON 4 MG/2 ML VIAL IVP ONE (13:37)
--- NOTE | 2018-05-21 13:44 | EDPHY ---
H & P Time Seen by Provider: 05/21/18 13:06 HPI/ROS: HPI Headache. 82-year-old female by private vehicle with her son. This patient presents with complaint of a headache which she describes as dull and aching. She describes waking up with a headache this morning. She describes it as bilateral temporal and frontal with a sensation of pressure behind her eyes. She reports that she has had headaches like this in the past but they have not been as severe. Her son then explained to me that she has had these headaches for the last 3 days since returning from [place] 1 week ago. She states the headaches have been intermittent in nature. They have gotten better with home oxygen and with sleeping. No neck pain. She denies any visual changes. No loss of sensation or weakness in her extremities. She has not had a fever. No history of trauma. She states she has had some mild nausea but no vomiting. ROS: Constitutional: No fever, no chills. No weakness. Eyes: No discharge. No changes in vision. ENT: No sore throat. No nasal congestion or rhinorrhea. Respiratory: No cough. No shortness of breath. Cardiac: No chest pain, no palpitations. Gastrointestinal: No abdominal pain, no vomiting, no diarrhea. As above. Genitourinary: No hematuria. No dysuria or increased frequency with urination. Musculoskeletal: No back pain. No neck pain. No myalgias or arthralgias. Skin: No rashes. Neurological: As above. No focal weakness or altered sensation. Past medical history: CHF, breast cancer, left-sided lymph nodes removed secondary to this, rheumatic fever, pacemaker, hypertension. Social history: Here with her son. Currently lives with her son. Nonsmoker. No alcohol. As above. Physical Exam: General Appearance: Alert, no distress. She currently appears comfortable. This patient is responding to questions appropriately and in full sentences. This patient appears well-hydrated and well-nourished. Eyes: Pupils equal and round and reactive to light at 3-2 mm bilaterally, no pallor or injection. No lid edema, erythema or injection. No photophobia. No nystagmus. ENT, Mouth: Mucous membranes are moist. The pharyngeal tissues are unremarkable. No edema or swelling. No asymmetry suggestive of abscess. No erythema or exudates. Respiratory: There are no retractions, lungs are clear to auscultation with good air movement bilaterally. Cardiovascular: Regular rate and rhythm. No murmur appreciated. Gastrointestinal: Abdomen is soft and nontender, no masses, bowel sounds normal. No focal tenderness at McBurney's point. No Phillips sign. Neurological: Motor sensory function is grossly intact. Cranial nerves are normal. Gait is normal. Skin: Warm and dry, no rashes. Musculoskeletal: Neck is supple and nontender. Extremities are symmetrical. All joints range without pain or impingement. Psychiatric: No agitation. No depression. Database: EKG: EKG time is 1:29 p.m.; EKG shows a atrial sensed ventricular paced rhythm with ventricular rhythm of 63. The QRS, QT intervals are within normal limits. There are no ST-T wave changes indicative of ischemic or injury pattern. No evidence of right heart strain. Interpreted by me. Imaging: CT scan of head without contrast: Negative. Results were discussed with staff radiologist. Procedures: Emergency department course: Triage vital signs reviewed. Blood pressure from triage vital signs 80/45. Blood pressure on my evaluation 103/52. Patient's presentation is consistent with mild altitude illness likely from returning from [place] approximately 1 week ago. She currently lives with her son in the [facility] outside [facility]. She has no contraindications to NSAIDs. She has a normal creatinine from January of 2018. She will be given 30 mg of IV Toradol, 10 mg of IV Decadron 4 mg of IV Zofran for treatment of her headache. She will be given 250 mL of normal saline. EKG obtained and reviewed by myself. She consents to CT imaging of her head. 2:20 p.m., patient re-evaluated. Resting comfortably at this time. She has received her medications. Of note her creatinine is now elevated to 1.9. I was not able to stop administration of Toradol in time. Renal insufficiency appears to be a pre renal azotemia with a BUN of 51. IV fluids will be administered carefully secondary to her history of CHF. However, I feel she is dehydrated. She will be given another 250 cc of IV normal saline. 3:00 p.m., patient re-evaluated. She is comfortable at this time. She states that she feels much better and is asking for discharge. Vital signs reviewed. Current blood pressure is 101/62. I discussed results of her blood work and reviewed her CT scan with her and her son. I explained my concern about her elevated BUN and creatinine and likely dehydrated status. I discussed follow- up through her primary care physician for re-evaluation of this. Return to emergency department precautions were thoroughly reviewed with the 2 of them. I instructed her not to take ibuprofen or NSAID type medications. All of her questions were answered. She was discharged in good condition with her son. Differential Diagnosis: The differential diagnosis on this patient includes but is not limited to altitude illness, migraine type headache. Subarachnoid hemorrhage, sagittal sinus thrombosis, cavernous sinus thrombosis, meningitis, encephalitis, temporal arteritis unlikely. This represents a partial list of diagnoses considered. These considerations are based on history, physical exam, past history, reassessment and diagnostic testing. Smoking Status: Former smoker Constitutional: Initial Vital Signs Temperature (C) 36.5 C 05/21/18 13:17 Heart Rate 66 05/21/18 13:17 Respiratory Rate 16 05/21/18 13:17 Blood Pressure 80/45 L 05/21/18 13:17 O2 Sat (%) 95 05/21/18 13:17 O2 Delivery Mode Room Air Allergies/Adverse Reactions: No Known Allergies Allergy (Verified 11/21/17 17:43) Home Medications: Medication Instructions Recorded Aspirin [Aspirin 81mg (*)] 81 mg PO DAILY #30 tab.chew 11/26/17 Carvedilol [Coreg (*)] 6.25 mg PO BIDMEAL #60 tab 11/26/17 Furosemide [Lasix 20 MG (*)] 20 mg PO BID #60 tab 11/26/17 Losartan Potassium [Cozaar 25 mg 25 mg PO DAILY #30 tab 11/26/17 (*)] Simvastatin 20 mg PO HS #30 tablet 11/26/17 Medical Decision Making - Data Points Laboratory Results: Laboratory Results 05/21/18 13:22 05/21/18 13:22 Medications Given: Discontinued Medications Dexamethasone (Decadron Injection) 10 mg IVP EDNOW ONE Stop: 05/21/18 13:38 Last Admin: 05/21/18 14:15 Dose: 10 mg Sodium Chloride (Ns) 250 mls @ 0 mls/hr IV ONCE ONE; Wide Open PRN Reason: Protocol Stop: 05/21/18 13:38 Last Admin: 05/21/18 14:16 Dose: 250 mls Sodium Chloride (Ns) 250 mls @ 0 mls/hr IV ONCE ONE; Wide Open PRN Reason: Protocol Stop: 05/21/18 14:26 Last Admin: 05/21/18 14:36 Dose: 250 mls Ketorolac Tromethamine (Toradol) 30 mg IVP EDNOW ONE Stop: 05/21/18 13:38 Last Admin: 05/21/18 14:15 Dose: 30 mg Ondansetron HCl (Zofran) 4 mg IVP EDNOW ONE Stop: 05/21/18 13:38 Last Admin: 05/21/18 14:16 Dose: 4 mg Departure - Departure Disposition: Home, Routine, Self-Care Clinical Impression: Headache, Dehydration, Renal insufficiency Condition: Good Instructions: Acute Headache (ED) Additional Instructions: Read and follow provided instructions. Follow-up with your primary care physician in 2-3 days for re-evaluation. I want your kidney function rechecked at this time. Your medication dosing should also be re-evaluated. I believe your low blood pressure in the emergency department and your decreased kidney function is secondary to dehydration. Avoid ibuprofen or other NSAID medications as discussed. Return to the emergency department for return of headache, worsening symptoms or other serious concerns. Referrals: Sylvia Rush PA [Primary Care Provider] - As per Instructions
[2018-05-21 13:56] LABS: PLATELET COUNT 164 10^3/uL (150-400)
[2018-05-21 15:19] VITALS: BP 101/51
== END 2018-05-21 15:19 | disposition home or self-care (01) ==
DX: R51 Headache (principal); E86.0 Dehydration; N28.9 Disorder of kidney and ureter, unspecified; E86.9 Volume depletion, unspecified; I11.0 Hypertensive heart disease with heart failure; I50.9 Heart failure, unspecified; Z79.82 Long term (current) use of aspirin; Z87.891 Personal history of nicotine dependence; Z95.0 Presence of cardiac pacemaker
CPT/HCPCS: 70450; 93005; 96374; 96375; 99285; J1100; J1885; J2405

== ENCOUNTER → 2018-12-25 | Outpatient (CLI) | payer OTHER | LOC: BMCIMAGING 11:20 | PROVIDERS: ATTEND Family Medicine | DX: M25.561 Pain in right knee (principal); M25.562 Pain in left knee ==

== ENCOUNTER → 2019-03-03 | Outpatient (CLI) | payer OTHER | LOC: BMCIMAGING 13:37 | PROVIDERS: ATTEND Family Medicine | DX: M80.88XA Other osteoporosis with current pathological fracture, vertebra(e), initial encounter for fracture (principal) ==

== ENCOUNTER 2019-04-04 17:26 | Inpatient (IN) | payer OTHER ==
[2019-04-04] MEDS ORDERED: ONDANSETRON 4 MG/2 ML VIAL IVP PRN (21:15)
[2019-04-04] MEDS ORDERED: PROMETHAZINE HCL 25 MG/ML INJ IVP PRN (21:15)
[2019-04-04] MEDS ORDERED: ACETAMINOPHEN 325 MG TAB PO PRN (21:15)
[2019-04-04] MEDS ORDERED: ONDANSETRON DISINTEGRATING 4 MG TAB PO PRN (21:15)
[2019-04-04] MEDS ORDERED: ALBUTEROL 3 ML DEYVIAL IH PRN (21:15)
[2019-04-04] MEDS ORDERED: HYDROCODONE/APAP 5/325 TAB PO PRN (21:15)
[2019-04-04] MEDS ORDERED: oxyCODONE IR 5 MG TAB PO PRN (21:15)
[2019-04-04] MEDS ORDERED: HYDROmorphONE/DILAUDID 1 MG/ML INJ IVP PRN (21:15)
--- NOTE | 2019-04-04 21:24 | PDGENHP ---
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 Apparently when she presented there, she was complaining of chest pain and shortness of breath and was found to have a room air saturation of 71%. She was describing the chest pain as pleuritic in nature, labs were obtained and notable for a D dimer of 3.79 and BNP >14K. There was concern for PE, however creatinine was 2.7 and therefore CTA could not be performed and patient was sent here for further evaluation. She does follow with Dr. Mckeon for her cardiac issues usually. On arrival here, she denies chest pain or sob, but does describe back pain, which on review of prior notes seems to be a chronic issue for her. History Information - Allergies/Home Medication List Allergies/Adverse Reactions: No Known Allergies Allergy (Verified 11/21/17 17:43) Home Medications: Carvedilol 12.5 mg PO BID 04/04/19 [Last Taken 04/04/19 17:00] Furosemide [Lasix 20 MG (*)] 20 mg PO DAILY 04/04/19 [Last Taken 04/04/19] Ranitidine HCl 150 mg PO HS 04/04/19 [Last Taken 04/03/19] Spironolactone [Aldactone 25 MG (*)] 25 mg PO DAILY 04/04/19 [Last Taken ] I have personally reviewed and updated: family history, medical history, social history, surgical history - Past Medical History coronary artery disease, CHF (systolic with EF of 20%), hypertension, hyperlipidemia Additional medical history: moderate pulm htn. VHD: moderate to severe MR, rheumatic heart disease. CKD baseline quite variable but likely closer to 1.4. chronic back pain. malnutrition - Surgical History Reports: cancer surgery (lumpectomy), pacemaker/AICD - Family History Positive for: non-pertinent - Social History Smoking Status: Former smoker Alcohol Use: None Drug Use: None Additional social history: lives with her son here in [place], Review of Systems Review of Systems: ROS: 10pt was reviewed & negative except for what was stated in HPI & below Physical Exam Physical Exam: Constitutional: chronically ill appearing, cachectic Eyes: PERRL, anicteric sclera Ears, Nose, Mouth, Throat: moist mucous membranes, hard of hearing Cardiovascular: regular rate and rhythym, systolic murmur, No edema Respiratory: no respiratory distress, reduced air movement, inspiratory crackles Gastrointestinal: normoactive bowel sounds, soft, non-tender abdomen Genitourinary: no bladder tenderness Skin: warm, normal color Musculoskeletal: muscular tenderness Neurologic: No AAOx3 Psychiatric: poor memory, other (e/o dementia) Lab Data & Imaging Review EKG additional interpertation: a sensed v paced Assessment & Plan Assessment: 83 yo F with hx of NICM with EF of 20% as well as CAD, VHD and ckd presenting from [facility] with c/o chest pain as well as AHRF, mariaelena on ckd # acute hypoxic respiratory failure: in the setting of significant heart disease and very elevated BNP however no significant pulmonary edema noted on cxr from [facility] and does not appear grossly overloaded on exam. D dimer elevated to 3.79 and unable to get CTA given elevated creatinine. Suspicious for PE and has been started empirically on tx dose lovenox for now. Will get BLE US, though no lower extremity edema she is very tender to palpation. CTA in am if renal function improved, if not echo and/or VQ scan. 71% on RA in [facility], in the 80s on RA on arrival here. Repeat xray in am. # chest pain: patient with dementia and says she thinks she remembers having chest pain earlier, but denies any currently. She does c/o back pain however, including her upper back. Trop and ecg non diagnostic at OSH, monitoring on tele , serial ecg and trops. Cards to eval in am. # chronic systolic heart failure: non ischemic dilated CM with EF of 20% previously, currently appears largely euvolemic though BNP quite elevated and hypoxic as above. Will repeat xray in am. Is on arb, aldactone, lasix, BB at home, has BivICD in place. If xray in am appears c/w volume overload may require diuresis, but currently not clear she is overloaded. Had heart cath in November. # mariaelena on ckd: baseline creatinine near 1.4, on presentation was 2.7. As above, overall patient appears euvolemic, will get urine na/creat/urea and provide gentle IVF overnight, holding diuretics and ARB for now. # VHD: with moderate to severe MR, moderate TR, hx of rheumatic heart disease, followed by Dr. Mckeon, as above # anemia: chronic and at baseline # malnutrition: weight has been stable for the most part for quite some time, BMI remains low # HTN: was on the low normal end at OSH, holding ARB and diuretics for now and monitoring # IP status Patient new to my care. Old records reviewed and summarized as above. Care plan reviewed with ER doctor from [facility].
[2019-04-04] MEDS: ENOXAPARIN 40 MG/0.4 ML SYR SC SCH (22:02)
[2019-04-04] MEDS ORDERED: FAMOTIDINE 20 MG TAB PO SCH (22:30)
[2019-04-05] MEDS: NS 1,000 ML IV SCH ×2 (00:23→15:57)
[2019-04-05 04:09] LABS: PLATELET COUNT 187 10^3/uL (150-400)
--- NOTE | 2019-04-05 09:39 | SOAPPROG ---
SOAP Progress Note Assessment/Plan: Assessment: Cardiology new patient consultation performed and dictated. 83 y/o woman with following cardiac and medical issues: --chronic non-ischemic systolic CHF with LVEF 28% and moderate to severe MR --BIVAICD --CRI with baseline serum creatinine 1.3 --dementia with memory issues Last cardiac cath 11/28 showed mild CAD. RHC: RA 7, PA 46/20, PCWP 16 and CO/CI 3.1/2.1 L/MIN. Echo 11/28 showed LVEF 28%, moderate to severe MR, moderate TR and estimated PAS 40mmHg. She last saw her clinic nursing department chairperson Dr. Shankar Mckeon and doing okay with chronic [place] at two blocks. She has had right back pain for last two weeks. Presented to [facility] ER with reportedly RA 71% and CXR showing atelectasis and elevated D-Dimer and serum creatinine 2.8. Transferred to [facility] for V/Q scan to rule out PE. This morning Ms. Lowe's main complaint is back pain. Denies chest pain, rest shortness of breath or PND or palpitations. IMP: 1)Hypoxemia probably from atelectasis from splinting of back pain. Need to rule out PE 2)CHF with LVEF 28% and moderate to severe MR appears compensated 3)ARF on CRI. REC: 1)continue ASA, Coreg and IVFs as doing 2)hold Losartan with ARF 3)echo today or tomorrow to reassess LVEF and degree of MR. 4)V/Q scan today or suspect serum creatinine will improve with IVF and possibly get CTA chest tomorrow or Saturday once CRI < 1.8 treating empirically with Lovenox for now. Cardiology will follow with you. Thanks. 04/05/19 09:31 Objective: Vital Signs Temp Pulse Resp BP Pulse Ox 36.7 C 64 16 111/59 L 94 04/05/19 08:00 04/05/19 08:00 04/05/19 08:00 04/05/19 08:00 04/05/19 08:00 Laboratory Results 04/05/19 03:25 04/05/19 03:25 04/04/19 04/05/19 04/06/19 05:59 05:59 05:59 Intake Total 650 Output Total 850 150 Balance -200 -150 ICD10 Worksheet Patient Problems: Problems Problem Status Onset Acute exacerbation of congestive heart failure Acute Cellulitis Acute Elevated troponin I level Acute Pacemaker Acute Sebaceous cyst Acute chronic disease mgmt/transitional Care Acute
[2019-04-05] MEDS: CARVEDILOL 25 MG TAB PO SCH ×2 (10:10→18:13)
[2019-04-05] MEDS: ASPIRIN 81 MG CHEWABLE TAB PO SCH (10:10)
--- NOTE | 2019-04-05 10:23 | PDMN ---
Medical Necessity Medical necessity: Pt meets IP criteria as of 04/04/2019 per and MCG M-89 ( Chest pain); est lso > 2 mn for ongoing tx and evaluation of chest pain in an elderly pt with acute hypoxic respiratory failure (71% on RA), CHF with moderate to severe MR (LVEF 28%, BNP >14k), mariaelena on ckd (creatinine 2.7, up from 1.4 baseline) and elevated D-dimer (3.79); requiring VQ scan to r/o PE, cardiology consultation, medication management, serial labs, and cardiac monitoring. Comorbid chronic anemia, malnutrition and HTN.
[2019-04-05] MEDS: ENOXAPARIN 40 MG/0.4 ML SYR SC SCH (10:26)
[2019-04-05] MEDS: LIDOCAINE 4%/MENTHOL 1% PATCH TD SCH (12:17)
[2019-04-05] MEDS: CYCLOBENZAPRINE 10 MG TAB PO PRN ×2 (12:38→21:26)
--- NOTE | 2019-04-05 13:08 | HOSPPROG ---
Hospitalist Progress Note Assessment/Plan: 83 yo F with hx of NICM with EF of 20% as well as CAD, VHD and ckd presenting from [facility] with c/o chest pain as well as AHRF, mariaelena on ckd # acute hypoxic respiratory failure: in the setting of significant heart disease and very elevated BNP however no significant pulmonary edema noted on cxr from [facility] and does not appear grossly overloaded on exam. D dimer elevated to 3.79 and unable to get CTA given elevated creatinine. - Suspicious for PE and has been started empirically on tx dose lovenox for now. - BLE US negative for DVT on admission - Cr improving this AM however GFR remains <30, if >30 tomorrow will proceed with CTA if not will pursue VQ Scan to further evaluate for PE - Repeat CXR this AM showing chronic bronchitis, atelectasis b/l # chest pain: patient with dementia and says she thinks she remembers having chest pain earlier, but denies any currently. - She does c/o back pain however, including her upper back which is chronic but worsening over past month - Trop and ecg non diagnostic at OSH, monitoring on tele, serial ecg and trops. - Cardiology consulted this AM. # chronic systolic heart failure: - non ischemic dilated CM with EF of 20% previously - currently appears largely euvolemic/hypovolemic though BNP quite elevated and hypoxic as above. - Is on arb, aldactone, lasix, BB at home, has BivICD in place. - Cardiology consulted, recommending repeat TTE # mariaelena on ckd: baseline creatinine near 1.4, on presentation was 2.7. - FEUrea 35.5% however Cr improved overnight with gentle IVF overnight - Will continue IVF overnight and repeat BMP in the AM - Continue holding diuretics (Lasix and Spironolactone) and ARB for now # VHD: with moderate to severe MR, moderate TR, hx of rheumatic heart disease, followed by Dr. Mckeon, as above # anemia: chronic and at baseline # malnutrition: weight has been stable for the most part for quite some time, BMI remains low # HTN: was on the low normal end at OSH, holding ARB and diuretics for now and monitoring # IP status Objective: Vital Signs Temp Pulse Resp BP Pulse Ox 36.7 C 64 16 111/59 L 94 04/05/19 08:00 04/05/19 08:00 04/05/19 08:00 04/05/19 08:00 04/05/19 08:00 Laboratory Results 04/05/19 03:25 04/05/19 03:25 04/04/19 04/05/19 04/06/19 05:59 05:59 05:59 Intake Total 650 Output Total 850 150 Balance -200 -150 ICD10 Worksheet Patient Problems: Problems Problem Status Onset Acute exacerbation of congestive heart failure Acute Cellulitis Acute Elevated troponin I level Acute Pacemaker Acute Sebaceous cyst Acute chronic disease mgmt/transitional Care Acute
--- NOTE | 2019-04-05 14:23 | ASMTLACE ---
YARELY Comorbidities - select Answers: Congestive heart failure all that apply Coronary Artery Disease # of Emergency department Answers: 0 visits in the last 6 months Score: 4 Date Signed: 04/05/2019 02:23 PM Electronically Signed By:Michelle Pantoja
--- NOTE | 2019-04-05 14:30 | ASMTCASEMG ---
Living Arrangements What is your living Answers: With Child(nichole) arrangement? Who do you live with? Discharge Plan Comments Coordination Status Comments Notes: Pt was admitted on OBS yesterday following chest pain. She has cardiomyopathy and had an electrocardiogram and chest x-ray today as well as electrocardiogram yesterday. She has a history of coronary artery disease and congestive heart failure. On this admission she has acute hypoxic respiratory failure. CM met with pt in her room today. She lives at home with her son Stuart Lowe [phone] and [id number] Lidia Stover [phone]. She does not use any homecare services and states that she still drives and is mostly independent in her ADLs. CM will contiue to follow. CHALINO D/C plan: TBD Date Signed: 04/05/2019 02:30 PM Electronically Signed By:Michelle Pantoja
--- NOTE | 2019-04-05 14:48 | GCON ---
[f rep st] CONSULTATION NEW CARDIOLOGY CONSULT DATE OF CONSULTATION: 04/05/2019 CHIEF COMPLAINT: Right back pain and noted hypoxemia, evaluate for possible cardiac causes of her hy poxemia. HISTORY OF PRESENT ILLNESS: The patient is an 83-year-old woman with moderate dementia and memory pr oblems. Most of the history is from previous charts. She does have chronic nonischemic heart failur e with an LVEF of 28% and chronic nqeqicfq-ut-samkeq mitral regurgitation and a biventricular AICD. She had a heart catheterization in November of 2017 that demonstrated mild CAD. Right heart hemodynam ics showed RA 7, PA 46/20, pulmonary capillary wedge pressure 16, and cardiac output and cardiac inde x 3.1 and 2.1 L/minute respectively. Her last echo in November of 2017 demonstrated an LVEF of 28% wi th nqdqfpbc-qi-aormnc mitral regurgitation and moderate tricuspid insufficiency with estimated pulmon betty artery pressure of 40 mmHg. Chronically, she has dyspnea on exertion at 2 blocks. She has had r ight back pain for the last 2 weeks and has been having problems taking a full breath. She went to h er clinic and was found to have a pulse ox room air saturation of 71%. She went to the [facility] ER where a chest x-ray demonstrated atelectasis and lab tests showed a D-dimer abnormal and a serum creatinine of 2.8. Of note, her normal creatinine is 1.3. She was transferred to [facility] for further evaluation of her hypoxemia and possible need for V/Q scan. This morning, her main comp laint is right back pain. She has no shortness of breath at rest and no chest pressure. She reports no palpitations or AICD shocks or orthopnea. PAST MEDICAL HISTORY: 1. Chronic nonischemic systolic heart failure with an LVEF of 28%. 2. Chronic obshoxjj-oh-xzovyr mitral regurgitation. 3. Chronic renal insufficiency with a creatinine of 1.3. 4. Moderate dementia and memory problems. 5. Biventricular AICD. PAST SURGICAL HISTORY: Biventricular AICD. CURRENT MEDICATIONS: Aspirin 81 mg per day, Coreg 12.5 mg twice daily, Lovenox 40 mg subcu twice christie ly, normal saline at 100 mL/hour. ALLERGIES: No known drug allergies. SOCIAL HISTORY: The patient denies cigarette use or tobaccoism. REVIEW OF SYSTEMS: The patient, with her dementia, is unable to give an accurate review of systems. PHYSICAL EXAM: VITAL SIGNS: Afebrile, pulse 64, blood pressure 111/58, respirations 22, 1 L/minute, 94%. Weight 45.2 kg. GENERAL: A thin appearing woman in no acute distress without chest pain or u sing excess respiratory muscles. EYES: Pupils equal and reactive to light. ENT: Oral mucosa with no cyanosis. NECK: Jugular venous pressure low at 67 cm. Carotid pulses 2+ bilaterally. LUNGS: D ecreased inspiratory effort. No obvious wheezes or rales. HEART: Normal PMI. Regular rate and rhy thm with 2/6 nonradiating systolic murmur and no S3. ABDOMEN: Soft and nontender. No guarding or r ebound. No obvious hepatosplenomegaly or ascites. EXTREMITIES: 2+ peripheral pulses including femo ral and pedal pulses. No edema noted. MUSCULOSKELETAL: No scoliosis. NEURO: Normal affect and mo od. NECK: No nuchal rigidity. SKIN: No bleeding or cyanosis. LABS: White count 8.0, hematocrit 31, platelets 187,000, MCV 92. Sodium 137, potassium 4.5, chlorid e 107, bicarb 23, BUN 54, creatinine 2.0, glucose 86. Troponin negative x2. IMPRESSION: 83-year-old woman with chronic nonischemic systolic heart failure with an LVEF of 28% an d chronic sifhtksx-nq-yabtzo mitral regurgitation and biventricular AICD with class 2-3 [employer] symptoms. Clinically I suspect her hypoxemia is probably from atelectasis from splinti ng of her back pain. Do need to rule out possible pulmonary embolism. From a heart standpoint, she appears compensated and is probably a little on the dry side volume johnson. There are no signs of pulm onary edema or new myocardial infarction. RECOMMENDATIONS: 1. Continue current medications. Currently, she is holding her losartan with her acute renal failur e and I agree with this. 2. Would continue on IV fluid resuscitation at 100 mL/hour. 3. Would adjust Lovenox to renal dosing. 4. Whether we get a V/Q scan today to evaluate for pulmonary embolus or whether empirically treat wi th Lovenox and IV fluid, I suspect her serum creatinine will return to baseline within the next 24-48 hours and might be able to tolerate a CTA of her chest then. 5. Overall, as per above do not think there are any active heart issues going on. I would get an ec hocardiogram to re-evaluate LV function and valvular function as it has been 17 months since her last heart evaluation and we will follow along with you during her hospitalization. /[id number]/MODL
[2019-04-05] MEDS ORDERED: ENOXAPARIN 40 MG/0.4 ML SYR SC SCH (20:00)
[2019-04-05] MEDS: FAMOTIDINE 20 MG TAB PO SCH (21:22)
[2019-04-05] MEDS: PATCH REMOVAL 1 EA PATCH TD SCH (21:24)
[2019-04-06] MEDS: ASPIRIN 81 MG CHEWABLE TAB PO SCH (08:08)
[2019-04-06] MEDS: CARVEDILOL 25 MG TAB PO SCH ×2 (08:08→17:35)
[2019-04-06] MEDS: LIDOCAINE 4%/MENTHOL 1% PATCH TD SCH (08:09)
--- NOTE | 2019-04-06 08:43 | SOAPPROG ---
MAISHA Progress Note Assessment/Plan: Assessment: 83 y/o woman with following cardiac and medical issues: --chronic non-ischemic systolic CHF with LVEF 28% and moderate to severe MR --BIVAICD --CRI with baseline serum creatinine 1.3 --dementia with memory issues Last cardiac cath 11/28 showed mild CAD. RHC: RA 7, PA 46/20, PCWP 16 and CO/CI 3.1/2.1 L/MIN. Echo 11/28 showed LVEF 28%, moderate to severe MR, moderate TR and estimated PAS 40mmHg. She last saw her clinic manager environmental affairs Dr. Shankar Mckeon and doing okay with chronic [place] at two blocks. She has had right back pain for last two weeks. Presented to [facility] ER with reportedly RA 71% and CXR showing atelectasis and elevated D-Dimer and serum creatinine 2.8. Transferred to [facility] for V/Q scan to rule out PE. Her main symptoms are still back pain. Denies CP, PND or lightheadedness or rest shortness of breath. PLAN: 1)No change in meds or IVF for now. 2)stat labs this AM (CBC and BMP). 3)CTA chest if SCR < 1.6 4)echo today to reassess LVEF and degree of MR. 04/06/19 08:40 Subjective: having back pain (chronic). Denies chest pressure, hemoptysis, rest shortness of breath or PND. Objective: Vital Signs Temp Pulse Resp BP Pulse Ox 36.6 C 81 18 133/70 H 99 04/06/19 07:52 04/06/19 07:52 04/06/19 07:52 04/06/19 07:52 04/06/19 07:52 Laboratory Results 04/05/19 03:25 04/05/19 03:25 04/05/19 04/06/19 04/07/19 05:59 05:59 05:59 Intake Total 650 2500 Output Total 850 150 Balance -200 2350 Physical Exam - Physical Exam General Appearance: alert EENT: normal ENT inspection Neck: non-tender Respiratory: lungs clear Cardiac/Chest: regular rate, rhythm, systolic murmur (2/6 SELIN heard), No edema, No gallop, No JVD Peripheral Pulses: 2+: carotid (R), carotid (L), femoral (R), femoral (L), dorsalis-pedis (R), dorsalis-pedis (L) Abdomen: non-tender, No guarding, No rebound Skin: warm/dry Extremities: No pedal edema Neuro/Psych: alert ICD10 Worksheet Patient Problems: Problems Problem Status Onset Acute exacerbation of congestive heart failure Acute Cellulitis Acute Elevated troponin I level Acute Pacemaker Acute Sebaceous cyst Acute chronic disease mgmt/transitional Care Acute
[2019-04-06] MEDS ORDERED: IOPAMIDOL (ISOVUE 370) 100 ML BTL IV ONE (09:56)
--- NOTE | 2019-04-06 10:34 | ECHO ---
[email or web address] [address] [address] Main: [phone] Echocardiography Examination Transthoracic Name: LOGAN TORRES MR#: [id number] Study Date: 04/05/2019 Study Time: 03:03 PM Date of : 1935 Age: 83 year(s) Height: 160 cm (63 in.) Weight: 44.91 kg (99 lb.) BSA: 1.43 m2 Gender: Female Examination: Echo Contrast: Image Quality: Rhythm: Pacemaker rhythm Heart Rate: 62 bpm BP: 95 mmHg/50 mmHg Indication: Shortness of breath Procedure Staff Referring Physician: Certified Phlebotomist: Jose Mancilla [facility] Reading Physician: Emory Phillip MD Requesting Provider: Ordering Physician: Louis Landrum Indication: Shortness of breath Measurements Chambers AV/MV Label Value Normal Value Label Value Normal Value LVOT Vmax 0.54 m/s (0.7m/s - 1.1m/s) AV PGmax 6 mmHg LVOT VTI 12.3 cm (18cm - 22cm) AV PGmean 4 mmHg LVDd, 2D 4.5 cm (3.9cm - 5.3cm) AV Vmax 1.21 m/s LVDs, 2D 3.5 cm (2.1cm - 4cm) MV E Vmax 0.37 m/s IVSd, 2D 1.2 cm (0.6cm - 1.1cm) MV A Vmax 1.03 m/s LVPWd, 2D 1.2 cm MV E/A 0.36 LVEF, 2D 35 % (54% - 74%) MV E/E' lateral 17.3 LVOT PGmean 1 mmHg MV E/E' septal 14.6 (0.45 - 1.25) LVOT Vmean 0.38 m/s MV E' septal 0.03 m/s LA Volume, BP 55 ml (22ml - 52ml) MV E' lateral 0.02 m/s LADs, 2D 4.1 cm (2.7cm - 3.8cm) MV E/E' mean 14.8 LAESV index, BP 38.5 ml/m2 MV E' mean 0.02 m/s Additional Vessels TV/PV Label Value Normal Value Label Value Normal Value AoRoot, MM 2.5 cm (2.2cm - 3.7cm) RA Pressure 5 mmHg RVSP 31 mmHg TR Pmax 26 mmHg TR Vmax 2.57 m/s PV PGmax 3 mmHg Patient: LOGAN TORRES Study Date: 04/05/2019 Page 1 of 3 03:03 PM PV Vmax, Caliper 0.91 m/s (0.6m/s - 0.9m/s) Conclusions Left Ventricle: CONCLUSIONS:1)Mild to moderately reduced LV systolic function with a LVEF of 35% and global hypokinesis.2)Mild concentric LVH with mild diastolic dysfunction noted.3)Normal RV size and RV systolic function.4)Mild to moderate left atrial enlargement noted.5)AICD wires noted in right heart chambers.6)Trivial AI with no noted.7)Mild to moderate MR without MV prolapse.8)Mild TR noted with estimated normal PA pressures.9)Trivial to mild circumferential pericardial effusion with no tamponade signs. Findings Left Ventricle: Left ventricle is normal in size. CONCLUSIONS: 1)Mild to moderately reduced LV systolic function with a LVEF of 35% and global hypokinesis. 2)Mild concentric LVH with mild diastolic dysfunction noted. 3)Normal RV size and RV systolic function. 4)Mild to moderate left atrial enlargement noted. 5)AICD wires noted in right heart chambers. 6)Trivial AI with no noted. 7)Mild to moderate MR without MV prolapse. 8)Mild TR noted with estimated normal PA pressures. 9)Trivial to mild circumferential pericardial effusion with no tamponade signs.There is mild concentric left ventricular hypertrophy. Grade I Diastolic Dysfunction. Left ventricular hypertrophy is noted. Right Ventricle: Normal size right ventricle. Right ventricular systolic function is normal. There is a pacing/ICD wire present in the right ventricle. Left Atrium: The left atrium is mildly to moderately dilated. Right Atrium: The right atrium is mildly dilated. Mitral Valve: Mild to moderate mitral regurgitation. There is mild mitral thickening. Aortic Valve: The aortic valve is structurally normal and trileaflet. Trivial aortic regurgitation is present. There is aortic sclerosis present. Tricuspid Valve: Right Ventricular systolic pressure is measured at 31 mmHg. Pulmonic Valve: Trivial pulmonic valve regurgitation is present. Aorta: The aorta is normal. The aortic root size in M-mode measures 2.5 cm. Aorta Measurements AoRoot, MM is 2.5 cm. Pericardium: Trivial pericardial effusion. Exam Details Procedure Ordered: Echo (No Signature Object) Patient: LOGAN TORRES Study Date: 04/05/2019 Page 2 of 3 03:03 PM Patient: LOGAN TORRES Study Date: 04/05/2019 Page 3 of 3 03:03 PM [id number]
[2019-04-06] MEDS ORDERED: NS 1,000 ML IV SCH (12:45)
--- NOTE | 2019-04-06 15:06 | HOSPPROG ---
Hospitalist Progress Note Assessment/Plan: 83 yo F with hx of NICM with EF of 20% as well as CAD, VHD and ckd presenting from [facility] with c/o chest pain as well as AHRF, mariaelena on ckd # acute hypoxic respiratory failure: in the setting of significant heart disease and very elevated BNP however no significant pulmonary edema noted on cxr from [facility] and does not appear grossly overloaded on exam. D dimer elevated to 3.79 and unable to get CTA given elevated creatinine. - Suspicious for PE and has been started empirically on tx dose lovenox - BLE US negative for DVT on admission - Cr improving this AM proceeded with CTA this morning which was negative for PE - Repeat CXR on 04/05 showing chronic bronchitis, atelectasis b/l # chest pain: patient with dementia and says she thinks she remembers having chest pain earlier, but denies any currently. - She does c/o back pain however, including her upper back which is chronic but worsening over past month - Trop and ecg non diagnostic at OSH, monitoring on tele, serial ecg and trops. - Cardiology consulted # chronic systolic heart failure: - non ischemic dilated CM with EF of 20% previously - currently appears largely euvolemic/hypovolemic though BNP quite elevated and hypoxic as above. - Is on arb, aldactone, lasix, BB at home, has BivICD in place. - Cardiology consulted, recommending repeat TTE which showed improvement in LVEF to 35%, recommends continuing to hold Lasix/Aldactone today # mariaelena on ckd: baseline creatinine near 1.4, on presentation was 2.7. - FEUrea 35.5% however Cr improved with gentle IVF, Cr 1.6 this AM - Will continue IVF overnight and repeat BMP in the AM - Continue holding diuretics (Lasix and Spironolactone) and ARB for now as above # VHD: with moderate to severe MR in the past, repeat TTE from this admission noting mild to moderate MR - Moderate TR, hx of rheumatic heart disease, followed by Dr. Mckeon, as above # anemia: chronic and at baseline # malnutrition: weight has been stable for the most part for quite some time, BMI remains low # HTN: was on the low normal end at OSH, holding ARB and diuretics for now and monitoring # IP status Subjective: Patient reports improvement in SOB this AM Objective: Vital Signs Temp Pulse Resp BP Pulse Ox 36.4 C 72 18 105/57 L 93 04/06/19 11:56 04/06/19 11:56 04/06/19 11:56 04/06/19 11:56 04/06/19 11:56 Laboratory Results 04/06/19 08:53 04/06/19 08:53 04/05/19 04/06/19 04/07/19 05:59 05:59 05:59 Intake Total 650 2500 Output Total 850 150 Balance -200 2350 - Physical Exam Constitutional: no apparent distress Eyes: PERRL Ears, Nose, Mouth, Throat: moist mucous membranes Cardiovascular: regular rate and rhythym, No edema Respiratory: no respiratory distress, reduced air movement Gastrointestinal: soft, non-tender abdomen Skin: warm Musculoskeletal: full muscle strength Neurologic: AAOx3 Psychiatric: interacting appropriately ICD10 Worksheet Patient Problems: Problems Problem Status Onset Acute exacerbation of congestive heart failure Acute Cellulitis Acute Elevated troponin I level Acute Pacemaker Acute Sebaceous cyst Acute chronic disease mgmt/transitional Care Acute
[2019-04-06] MEDS: FAMOTIDINE 20 MG TAB PO SCH (19:22)
[2019-04-06] MEDS: PATCH REMOVAL 1 EA PATCH TD SCH (19:24)
[2019-04-07 07:22] VITALS: BP 129/69
[2019-04-07] MEDS: ASPIRIN 81 MG CHEWABLE TAB PO SCH (09:20)
[2019-04-07] MEDS: CARVEDILOL 25 MG TAB PO SCH (09:20)
[2019-04-07] MEDS: LIDOCAINE 4%/MENTHOL 1% PATCH TD SCH (09:20)
--- NOTE | 2019-04-07 10:58 | PDIAF ---
- Diagnosis Diagnosis: UMESH Code Status: Full Code - Medication Management Discharge Medications: electronically signed and located in the Home Medication List. - Orders Services needed: Physical Therapy - Follow Up Care Current Providers and Referrals: Sylvia Rush PA [Primary Care Provider] - Shankar Mckeon MD [Medical Doctor] -
[2019-04-07] MEDS ORDERED: FUROSEMIDE 20 MG TAB PO SCH (11:00)
--- NOTE | 2019-04-07 11:04 | PDCARPN ---
Cardiology Progress Note Chief Complaint: Patient reports like to go home. Assessment/Plan: Assessment: 83-year-old female with history of chronic nonischemic systolic heart failure, moderate to severe MR, Bi V AICD, chronic renal insufficiency with baseline creatinine at 1.3, dementia with memory issues. Admitted 04/04/2019 from [facility] for further evaluation for noted hypoxemia. Noted on admission to have BNP greater than 14,000, renal insufficiency with creatinine greater 2.0. Echocardiogram on 04/05/2019 noting pysm-yh-naikthsk reduced LV systolic function with LVEF 35% with global hypokinesis, mild concentric LVH with mild diastolic dysfunction, normal RV size and RV systolic function, mild-to- moderate LA enlargement, trivial AI, no , xmpn-zb-njuxmdvu MR, mild TR, normal PA pressures, trivial to mild circumferential pericardial effusion with no tamponade. Patient's most recent heart catheterization 11/2017 noting mild CAD, RA of 7, PA 46/20, PCWP 16, CO 3.1 CI 2.1. CTA of chest done 04/06/2019 showing no evidence of PE, act elect this is at both lung bases and minimal bilateral pleural effusions. Patient reporting on admission of ongoing lower back pain, worsening with inspiration happening for 3 4 weeks. 04/07/2019: Patient reporting no significant SOB, maintaining SpO2 greater 90% on room air. Reports no chest pain or pressure. Reports back pain improved. BUN 29, creatinine 1.5, weight is up 1.1 kilos from yesterday, I>O. Electrocardiogram showing AV paced rhythm with no malignant arrhythmias or pauses. Plan: 1. Acute hypoxic respiratory failure: Significant improvement, currently on room air. Noted to have elevated BNP on admission but no significant signs of heart failure on chest x-ray. Echocardiogram noted normal pulmonary pressures, CTA negative for PE. Chest x-ray did suggest potential chronic bronchitis inactive rectus is, patient does admit with back pain she has been taking less deep breaths. 2. Chronic systolic heart failure: Nonischemic dilated cardiomyopathy, most recent echocardiogram showing EF of 35%. She appears fairly euvolemic despite having elevated BNP. Weight is up again today, renal function is close to baseline. Resume home dose of Lasix. Continue on current dose of beta-radha , patient has Bi V AICD. Consideration of restarting Aldactone and losartan in the next week. 3. Chronic kidney disease with UMESH: Creatinine back to baseline, resume diuretic therapy as above. Will need repeated BMP. 4. Valvular heart disease: Patient in past had been noted to have moderate to severe MR, echocardiogram done today showing improvement, now estimated mild-to- moderate. Patient planning to be discharged home, have scheduled her for follow-up with her primary work ticket distributor, Dr. Mckeon next week. 04/07/19 11:19 Subjective: She reports no chest pain or pressure. Feels her shortness of breath and improved. Denies of any palpitations or lightheadedness. Reviewed/Discussed With: hospitalist (Dr Landrum), other (Dr Hernandez) Objective: Vital Signs (8 Hrs) Temp Pulse Resp BP Pulse Ox 04/07/19 09:20 76 129/69 H 04/07/19 07:22 36.7 C 80 14 129/69 H 93 04/07/19 03:45 36.6 C 83 16 131/63 H 91 L Intake/Output (24 Hrs) 04/06/19 04/07/19 04/08/19 05:59 05:59 05:59 Intake Total 2500 1450 Output Total 150 650 Balance 2350 800 Intake: Oral (ml) 400 250 IV Infused (ml) 2100 1200 Ns 1,000 ml @ 100 mls/hr 2100 1200 IV CONT MAXIME Rx#: [id number] Output: Urine (ml) 150 650 Toilet 150 650 Other: Weight 46.9 kg 48.081 kg Number of Voids Toilet 4 Result Diagrams: 04/06/19 08:53 04/07/19 03:47 Cardiac Labs: Cardiac Lab Results (72 Hrs) 04/05/19 04/04/19 03:25 21:48 Troponin I < 0.012 < 0.012 - Physical Exam Constitutional: WDWN, no apparent distress Ears, Nose, Mouth, Throat: moist mucous membranes Cardiovascular: regular rate and rhythm, systolic murmur (2/6 left sternal border), jugular vein distention (4 cm above sternal notch), pulses symmetric bilat Peripheral Pulses: 1+: dorsalis-pedis (R), dorsalis-pedis (L), 2+: carotid (R), carotid (L) Respiratory: clear to auscultate bilat, no crackles, no wheezes, other (No accessary muscle use, no intercostal muscle retraction) Gastrointestinal: normoactive bowel sounds Skin: no rashes, warm, No no edema (Trace pedal) Neurologic: AAOx3 Psychiatric: cooperative, interactive, following commands ICD10 Worksheet Patient Problems: Problems Problem Status Onset chronic disease mgmt/transitional Care Acute Sebaceous cyst Acute Cellulitis Acute Pacemaker Acute Acute exacerbation of congestive heart failure Acute Elevated troponin I level Acute
--- NOTE | 2019-04-07 11:13 | ASDISCHSUM ---
Discharge Information Plan Status:Home with No Needs Medically Cleared to Leave: Discharge Date: CM D/C Disposition: ADT D/C Disposition: Projected Discharge Date: Transportation at D/C: Discharge Delay Reason: Follow-Up Date: Discharge Slot: Final Diagnosis: Placement Information Patient Contact Information Contact Name:MANOHAR Relationship:Son Address: Work Phone: City: [facility] Phone: State/Zip Code: Email: Financial Information Financial Class:Medicare Primary Plan Desc:MEDICARE INPATIENT Primary Plan Number:[id number] Secondary Plan Desc:PAULA DINH BLACK Secondary Plan Number:[id number] Assessment Information LACE LACE Comorbidities - select Answers: Congestive heart failure all that apply Coronary Artery Disease # of Emergency department Answers: 0 visits in the last 6 months Score: 4 Date Signed: 04/05/2019 02:23 PM Electronically Signed By:Michelle Caruso.[facility] LACE LACE Length of stay for Answers: 3 days current admission Comorbidities - select Answers: Congestive heart failure all that apply Coronary Artery Disease # of Emergency department Answers: 0 visits in the last 6 months Score: 7 Date Signed: 04/07/2019 11:11 AM Electronically Signed By:Michelle Caruso.[facility] Initial CM Assessment Living Arrangements What is your living Answers: With Child(nichole) arrangement? Who do you live with? Discharge Plan Comments Coordination Status Comments Notes: Pt was admitted on OBS yesterday following chest pain. She has cardiomyopathy and had an electrocardiogram and chest x-ray today as well as electrocardiogram yesterday. She has a history of coronary artery disease and congestive heart failure. On this admission she has acute hypoxic respiratory failure. CM met with pt in her room today. She lives at home with her son Stuart Lowe [phone] and sfxukjad-se-sqa Lidia Stover [phone]. She does not use any homecare services and states that she still drives and is mostly independent in her ADLs. CM will contiue to follow. CM D/C plan: TBD Date Signed: 04/05/2019 02:30 PM Electronically Signed By:Michelle Caruso.[facility] Case Management Discharge Plan Note Case Management Discharge Discharge Order Complete? Answers: Yes Patient to Obtain Answers: via Family Medications Transportation Arranged Answers: Family/Friends Family Notified Answers: Yes Notes: Pt called son for ride Discharge Comments Notes: Pt is being D/Cd home today with outpatient rehab. She lives with her son and gohlyouw-eg-odo and is calling son for a ride home. No CM needs identified. Date Signed: 04/07/2019 11:12 AM Electronically Signed By:Michelle Caruso.[facility] Intervention Information Intervention Type:*IM-Signed Date of Service:04/05/2019 02:46 PM Patient Type:Inpatient Staff Member:Michelle Pantoja Hours: Discipline: Severity: Comment:copy given to patient Intervention Type:*YOUNGER-Signed Date of Service:04/05/2019 02:45 PM Patient Type:Inpatient Staff Member:Michelle Pantoja Hours: Discipline: Severity: Comment:copy given to patient
--- NOTE | 2019-04-07 12:58 | PDDCSUM ---
Discharge Summary Discharge Summary: Date of Admission: 04/04/2019 Date of Discharge: 04/07/2019 Consults: Cardiology Procedure: CTA Chest Followup: Cardiology (Dr. 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 D dimer elevated to 3.79 and unable to get CTA given elevated creatinine on admission - Suspicious for PE, was started empirically on tx dose lovenox, CTA Chest performed when Cr improved which was negative for PE, lovenox d/c - BLE US negative for DVT on admission - Repeat CXR on 04/05 showing chronic bronchitis, atelectasis b/l - Saturating well on RA upon discharge # chest pain: patient with dementia and says she thinks she remembers having chest pain earlier, but denies any currently. - She does c/o back pain however, including her upper back which is chronic but worsening over past month - Trop and ecg non diagnostic # chronic systolic heart failure: - non ischemic dilated CM with EF of 20% previously - currently appears largely euvolemic/hypovolemic though BNP quite elevated and hypoxic as above. - Is on arb, aldactone, lasix, BB at home, has BivICD in place. - Cardiology consulted, repeat TTE showed improvement in LVEF to 35%, recommends restarting Lasix upon discharge, continue holding ARB, Aldactone until f/u with Dr. Mckeon of Cardiology # mariaelena on ckd: baseline creatinine near 1.4, on presentation was 2.7. - FEUrea 35.5% however Cr improved with gentle IVF, Cr 1.5 this AM - Restarted Lasix as above, holding ARB and Aldactone until f/u with cards # VHD: with moderate to severe MR in the past, repeat TTE from this admission noting mild to moderate MR - Moderate TR, hx of rheumatic heart disease, followed by Dr. Mckeon, as above # anemia: chronic and at baseline # malnutrition: weight has been stable for the most part for quite some time, BMI remains low # HTN: was on the low normal end at OSH, he ARB and diuretics as above Time spent on discharge was >35 minutes with 50% of time spent on pt education and counseling. Resume home dose of Lasix. Continue on current dose of beta-radha, patient has Bi V AICD. Consideration of restarting Aldactone and losartan in the next week.
--- NOTE | 2019-04-10 11:05 | CPEKG ---
Test Reason : OPEN Blood Pressure : / mmHG Vent. Rate : 069 BPM Atrial Rate : 068 BPM P-R Int : 172 ms QRS Dur : 123 ms QT Int : 434 ms P-R-T Axes : 033 -58 117 degrees QTc Int : 465 ms Ventricular-paced rhythm Confirmed by Paul Maya ([id number]) on 04/10/2019 11:04:58 AM Referred By: Yazmin Thompson Confirmed By:Paul Maya
--- NOTE | 2019-04-10 11:05 | CPEKG ---
Test Reason : OPEN Blood Pressure : / mmHG Vent. Rate : 060 BPM Atrial Rate : 060 BPM P-R Int : 068 ms QRS Dur : 115 ms QT Int : 466 ms P-R-T Axes : 038 264 000 degrees QTc Int : 466 ms Atrial-ventricular dual-paced complexes Confirmed by Paul Maya ([id number]) on 04/10/2019 11:05:09 AM Referred By: Yazmin Thompson Confirmed By:Paul Maya
== END 2019-04-07 12:43 | disposition home or self-care (01) | DRG 189 ==
LOC: F2W 20:25 → OBSVTOIN 22:29
PROVIDERS: ADMIT Internal Medicine; ATTEND Internal Medicine
DX: J96.01 Acute respiratory failure with hypoxia (principal); N17.9 Acute kidney failure, unspecified; E46 Unspecified protein-calorie malnutrition; I42.0 Dilated cardiomyopathy; I13.0 Hypertensive heart and chronic kidney disease with heart failure and stage 1 through stage 4 chronic kidney disease, or unspecified chronic kidney disease; I50.22 Chronic systolic (congestive) heart failure; N18.9 Chronic kidney disease, unspecified; F03.90 Unspecified dementia, unspecified severity, without behavioral disturbance, psychotic disturbance, mood disturbance, and anxiety; I34.0 Nonrheumatic mitral (valve) insufficiency; I25.10 Atherosclerotic heart disease of native coronary artery without angina pectoris; Z95.810 Presence of automatic (implantable) cardiac defibrillator
CPT/HCPCS: 97162-GP; 97166-GO; J1650; Q9967